=== PATIENT | male | born 1960 | race Caucasian/White ===

== ENCOUNTER 2022-06-16 15:03 | Outpatient (CLI) | payer BC, SELFPAY ==
--- NOTE | 2022-06-16 15:10 | MR_ITS ---
[address] [address] Phone:?[phone] Fax:?[phone] Referring Physician Information: Chu Colon M.D. [id number] [facility] [address] Phone:?[phone] Fax:?[phone] Patient:Espinoza Jimenez D.O.B:?1960 Sex:?Male Phone:?[phone] [facility] MRN:?[id number] Exam Date:?06/16/2022 ? EXAM: MRI of the LEFT ARM/HUMERUS WITHOUT CONTRAST CLINICAL HISTORY: Left humerus pain for multiple months attributed to traumatic injury hitting a tree. COMPARISONS: MRI of the left shoulder 10/24/2021. TECHNICAL: MR sequences of the left arm/humerus: Axials: T1, T2 FS, T2 Coronals: PD, T2, STIR Sagittals: PD, T2 CONTRAST: None SEDATION: None FINDINGS: No fracture or suspicious bone marrow signal abnormality is seen. There is mild edema-like signal within the distal portion of the biceps muscle/myotendinous junction. There is an approximately 5.6 x 2.0 x 3.1 cm intramuscular lipoma within the inferior aspect of the left deltoid muscle best seen on axial series 1 and 5 images 1 through 10. The left shoulder was not evaluated by this study. See MRI of the left shoulder and its report dated 10/24/2021. IMPRESSION: 1. 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 2. Mild edema-like signal within the distal portion of the left biceps muscle/myotendinous junction may reflect strain injury although it must be noted that evaluation is suboptimal as the images do not extend far enough distally to evaluate the distal biceps tendon including the radial tuberosity insertion. If there is concern for distal biceps tendon pathology, dedicated MRI of the left elbow could be obtained for further evaluation if clinically appropriate. 3. The left shoulder was not evaluated by this study. See MRI of the left shoulder and its report dated 10/24/2021. RCB Electronically signed on 06/17/2022 9:29:00 AM by Freddy Go M.D.
--- OUTSIDE RECORDS SUMMARY | 2022-06-16 15:11 | XMS_ITS | Encounter Summary ---
:1960 Author Organization [facility] Address [address] [place] [address] Care Team Providers Name Role Phone Unavailable Primary Care Provider Unavailable Reason for Visit Reason Onset Date Comments Testing For Upper Respiratory Virus Symptoms 09/15/2020 Encounter Details Date Type Department Care Team Description 09/15/2020 External Outreach Department of [facility] Eric Castro [facility] Medicine, Chay Maria D.O. Respiratory (Primary Building, in [address] [place], [place] [address] [address] [place], [place] [phone] (Work) [phone] Social History Tobacco Use Types Packs/Day Years Used Date Smoking Tobacco: Never Assessed Sex Assigned at Date Recorded Not on file documented as of this encounter Progress Notes Nani De Paz R.N. - 09/15/2020 12:09 PM CST Encounter created for symptomatic infectious disease screening with possible COVID, Influenza, and RSV testing. NG MACHINERY ASSEMBLER documented in this encounter Plan of Treatment Not on filedocumented as of this encounter Procedures Procedure Name Priority Date/Time Associated Diagnosis Comme nts SARS CORONAVIRUS-2 Routine 09/15/2020 12:48 PM Infection Upper Results for this RNA, V MINING MACHINERY ASSEMBLER Respiratory procedure are i n the results section. documented in this encounter Results SARS Coronavirus-2 RNA, V Symptomatic (09/15/2020 12:48 PM MINING MACHINERY ASSEMBLER) [facility] Method Time Signature SARS-CoV-2 Swab, 09/16/2020 MKTO Specimen Nasopharynx 12:49 PM Source MINING MACHINERY ASSEMBLER SARS CoV-2 Undetected Undetected 09/16/2020 [place] RNA, TMA 12:49 PM MINING MACHINERY ASSEMBLER Comment: SARS-CoV-2 RNA absent. This result does not rule out COVID-19 in the patient, as the sensitivity of the test depends o n the timing of the specimen collection and the quality of the specim en. Result should be correlated with patient's history and clinical presentat ion. ----ADDITIONAL INFORMATION---- This molecular amplification test was pe rformed using the Aptima SARS-CoV-2 assay ([employer] on the [employer] tem under emergency use authorization (EUA) by the U.S. Food and Drug Administ ration. Fact sheets for this EUA assay can be fo und at the following links: For Healthcare Providers: https://www.[employer] a.gov/media/071776/download For Patients: https://www.fda.gov/media/ 035761/download Specimen Anatomical Collection Method Collection Time Receive d Time (Source) Location / / Volume Laterality Varies 09/15/2020 12:48 09/16/2020 1:32 (Nasopharynx) PM MINING MACHINERY ASSEMBLER AM MINING MACHINERY ASSEMBLER Eric Castro D.O. LAB MICROBIOLOGY - GENERAL O RDERABLES Performing Organization Address City/State/ZIP Code Phon e Number [facility]- [address] [place] [address] [place] [address] [address] documented in this encounter Visit Diagnoses Diagnosis Infection Upper Respiratory - Primary documented in this encounter Additional Health Concerns Infection Onset Date Last Indicated Resolved Time COVID19 Pending 09/15/2020 09/15/2020 09/16/2020 12:50 PM MINING MACHINERY ASSEMBLER documented as of this encounter
--- OUTSIDE RECORDS SUMMARY | 2022-06-16 15:11 | XMS_ITS | Encounter Summary ---
:1960 Author Organization [facility] Address [address] [place] [address] Care Team Providers Name Role Phone Unavailable Primary Care Provider Unavailable Reason for Visit Reason Comments Patient Education Encounter Details Date Type Department Care Team Description 09/24/2020 Clinical Communication Department of Laci Restrepo Education [facility], [address] [place] [address] [place] [address] [place], [place] [phone] (Work) [phone] Social History Tobacco Use Types Packs/Day Years Used Date Smoking Tobacco: Never Assessed Sex Assigned at Date Recorded Not on file documented as of this encounter Plan of Treatment Not on filedocumented as of this encounter Visit Diagnoses Not on filedocumented in this encounter Additional Health Concerns Infection Onset Date Last Indicated Resolved Time [id number]: Patient has met criteria for release from isolation. Please see nursing note for further details. 09/22/2020 09/22/20202020 2:35 PM SUPERINTENDENT TERMINAL Tata Moore, R.N. documented as of this encounter
--- OUTSIDE RECORDS SUMMARY | 2022-06-16 15:11 | XMS_ITS | Encounter Summary ---
:1960 Author Organization [facility] Address [address] [place] [address] Care Team Providers Name Role Phone Unavailable Primary Care Provider Unavailable Encounter Details Date Type Department Care Team Description 09/15/2020 Clinical Communication Department of Orthopedic [facility] ere, Pcp Surgery in [place], [place] [address] [place] [address] Social History Tobacco Use Types Packs/Day Years Used Date Smoking Tobacco: Never Assessed Sex Assigned at Date Recorded Not on file documented as of this encounter Miscellaneous Notes Telephone Encounter - Sonia Diaz - 09/15/2020 11:42 AM CST What is the purpose of the call?: Requesting Testing Only Request Testing In the past 14 days are any of the following symptoms new to you and not related to an existing health condition?: New cough, New sore throat, New chills, New myalgias (muscle aches), New headache Because of symptoms, transfer patient to: : [facility] COVID Nurse Line (End Screening) Symptom Onset Date of symptom onset: 09/13/20 Testing Recommendation Endpoint Is testing recommended? : Transferred to nursing call line Plan: Endpoint recommendation: Transferred to Nursing/COVID Line/Care Team *Reminder if sending patient for testing in [facility] or [facility], route encounter to the correct testing pool. ENGER RELATIONS REPRESENTATIVE documented in this encounter Plan of Treatment Not on filedocumented as of this encounter Visit Diagnoses Not on filedocumented in this encounter
--- OUTSIDE RECORDS SUMMARY | 2022-06-16 15:11 | XMS_ITS | Encounter Summary ---
:1960 Author Organization [facility] Address [address] [place] [address] Care Team Providers Name Role Phone Unavailable Primary Care Provider Unavailable Reason for Visit Reason Comments COVID Nurse Line Encounter Details Date Type Department Care Team Description 09/15/2020 Clinical Communication Division of Joselyn Doyle COVI D Nurse Adenike [facility] Internal R.N. Medicine, [place], [place] [address] [place] [address] Social History Tobacco Use Types Packs/Day Years Used Date Smoking Tobacco: Never Assessed Sex Assigned at Date Recorded Not on file documented as of this encounter Miscellaneous Notes Telephone Encounter - Joselyn Doyle R.N. - 09/15/2020 11:49 AM CST COVID-19 Nurse Line Screening ASSESSMENT Combo COVID + Upper Respiratory Infection (URI) Screening Select the most appropriate pathway: : Adult Have you had close contact* with a person who has a LABORATORY CONFIRMED case of COVID-19 in the past 14 days?: Yes- Provide quarantine instructions. (Continue Screening) In the last 48 hours, have you had a fever* OR symptoms that are unrelated to a preexisting illness?: New cough, New sore throat, New chills, New headache Do you have any of the following urgent symptoms?: No urgent symptoms noted (Continue Screening) Do you have any of the following respiratory syntonical virus (RSV) complications? : No complications noted (Continue Screening) Are all the following symptoms present: temperature of 100.0 degrees Fahrenheit or greater, muscle aches or headache AND a cough?: No all symptoms are not present (End Screening) Symptom Onset Date of symptom onset: 09/12/20 Testing Recommendation Endpoint Is testing recommended? : Recommended to test PLAN Endpoint recommendation: Screening positive, testing indicated, advised to be swabbed for COVID-19 and Influenza, sent to [facility] located at [address] [place] [address]. The entrance is on the north side of the building. You must call [phone] for an appointment time.Testing hours are Daily 9 am to 5 pm.When you arrive at the testing site: Remain in your vehicle and check-in by phone using the same appointment line number. and Please avoid using public transportation per CDC recommendation. If you do not have personal transportation please self-quarantine until a personal transportation option is available. Care Points: -Wash hands frequently with soap and water for at least 20 seconds -If soap and water are not available, use a hand pharmacy coordinator -Avoid touching your eyes, nose and mouth. -Clean and disinfect high-touch surfaces routinely. -Wear a mask over your nose and mouth. A cloth face cover is not a substitute for social distancing -Continue to keep about 6 feet between yourself and others. -Avoid public areas and public transportation. -Find new ways to connect with family and friends, get support and share feelings. -Seek emergent care if any of the following occur Trouble breathing Bluish lips or face Persistent pain or pressure in the chest New confusion or inability to rouse. -Notify your regular care provider of any new or worsening symptoms. Symptomatic Carepoints: Separate yourself from others and stay in a specific sick room if able. Avoid sharing personal or household items. Rest. Hydrate. Take Acetaminophen/Ibuprofen as needed to control fever and muscles aches. Use over the counter medications as needed for other symptoms. Education: Patient/caregiver able to teach back Patient agreeable to plan of care: Yes The following references were used: [facility] novel coronavirus (COVID- 19) resources CDC web site https://www.cdc.gov/coronavirus/2019-ncov/summary.html Nursing judgement BLOCKER documented in this encounter Plan of Treatment Not on filedocumented as of this encounter Visit Diagnoses Not on filedocumented in this encounter
--- OUTSIDE RECORDS SUMMARY | 2022-06-16 15:11 | XMS_ITS | Encounter Summary ---
:1960 Author Organization [facility] Address [address] [place] [address] Care Team Providers Name Role Phone Unavailable Primary Care Provider Unavailable Encounter Details Date Type Department Care Team Description 09/25/2020 Clinical Communication Division of Lynda Hilario Internal Medicine in Tata Mendez, R.N. [address] [place] [phone] [phone] Social History Tobacco Use Types Packs/Day Years Used Date Smoking Tobacco: Never Assessed Sex Assigned at Date Recorded Not on file documented as of this encounter Miscellaneous Notes Telephone Encounter - Sharon Lara M.A.N., R.N. - 09/25/2020 10:38 AM CST SUBJECTIVE CHIEF COMPLAINT / REASON FOR CALL No chief complaint on file. Information Discussed Hi, my name is Tata Mccord, R.N. from [facility] with a recommendation that you receive a monoclonal antibody infusion for the treatment of coronavirus disease 2019 (COVID-19). This medication could be either bamlanivimab or a casirivimab and imdevimab combination. This medication has bee n recommended for you after review of your medical records by a multidisciplinary physician team. While most people do feel better in seven days, some people do develop serious respiratory complications which could lead to hospitalizations or even . You may have been told that there were no treatments at the time of diagnosis, but this is a quickly developing area and this is a new [place] recommended treatment option for you. In the next few minutes I am going to give you more information about these medications to help you understand the possible risks and benefits of taking a monoclonal antibody infusion It is your choice to receive a monoclonal antibody infusion or stop at any time. ??? Receiving a monoclonal antibody infusion may benefit certain people with COVID-19. ??? This may decrease your risk for hospitalization by 10% to 3% ??? This may decrease the duration of your symptoms by 2 days ( from 8 days to 6 days) ??? You may be feeling well now or not that bad, however, you have been identified as someone who isat risk of developing worse symptoms, and this infusion is designed to prevent that and help you to continue feeling well. What is a monoclonal antibody infusion? These are investigational medicines used for the treatment of COVID-19, it can be used in peoplewho are: o Not in the hospital o Who do not have a new or increased oxygen requirement due to COVID-19 o Who have not tested positive for COVID-19 previously o Age 12 and older o Have mild or moderate symptoms o Weigh equal or more than 88 pounds o AND who are at high risk for developing severe COVID-19 symptoms or being hospitalized. Do you have new or increased oxygen requirement due to COVID 19? No, I do need to let you know that your vital signs will be taken on the arrival for the infusion center. If you are found to be in needof oxygen due to COVID-19 then you will not be infused with MAB rather you will be referred to an urgent care or ED for evaluation of worsening disease. Have you been previously tested and diagnosed with COVID-19? No. I need to let you know that these medications are investigational because it is still being studied.The FDA has approved the use of this medication under an EUA while data is still being collected; but early studies suggest that it reduces the risk of hospitalization. The FDA's Emergency Use Authorization (EUA) has authorized people to receive monoclonal antibody infusions for the treatment of mild COVID-19 . [facility] supports this treatment for certain people. Tell your healthcare provider about all of your medical conditions, including if you: ??? Have any allergies ??? Are or plan to become ??? Are or plan to breastfeed ??? Have any serious illnesses ??? Are taking any medications (prescription, ehvo-qkf-[id number], vitamins, and herbal products) How will I receive a monoclonal antibody infusion? Monoclonal antibodies are given to you through a vein in your arm over 1-2 hours. You will be observed for 1 hour after the infusion is complete to monitor for side effects You will receive one dose of a monoclonal antibody infusion by IV infusion. What are the important possible side effects of monoclonal antibodies? The most commonly reported side effects in clinical studies have been nausea, diarrhea, dizziness, headache, itching and vomiting. Serious reactions such as allergic reactions or infusion reactions have occurred but are uncommon. Tell your health care provider right away if you have any of the following signs or symptoms of an allergic reaction: fever, chills, nausea, headache, shortness of breath, low blood pressure, wheezing, swelling of your lips face or throat, rash including hives, itching, muscle aches and dizziness. Because monoclonal antibody infusions are still being studied, not a lot of people have been given monoclonal antibody infusions yet, and it is possible that not all of the risks are known at this time. Serious and unexpected side effects may happen. Specific studies haven not been conducted to address the possible risks that a monoclonal antibody infusion could interfere with your body's own ability to fight off a future infection of SARS-CoV-2 and/or whether it could reduce your body's immune response to a vaccine for SARS-CoV-2 . Talk to your healthcare provider if you have any questions inclusing whether the risks of serious SARS-CoV-2 infection outweigh the potential risks of monoclonal antibody infusion. You are still eligible for the COVID-19 vaccine if you receive a monoclonal antibody infusion. The recommendation is that you wait for 90 days from the start of your symptoms, or date of positive test if you never had symptoms, to receive the vaccine. This is because you will have natural antibodies as well as the ones from the infusion. After 90 days the antibodies from the infusion will have cleared out of your system. I am happy to share with you that in the last 30 days [facility] has infused over 700 patients witha monoclonal antibody infusion [place]. I am sharing this because we have not seen any serious side effects in the patients who chose to receive the infusion. The side effects that we are seeing are similar to patients who chose not to receive the medication at all. Patients have reported to us mild fever, diarrhea, chills for a short while, and/or hives. What other treatment choices are there? Like monoclonal antibody infusions, the FDA may allow for the emergency use of other medicines to treat people with COVID-19. Go to https://www.ddbwm60qmxqirainfjgvowhfjf.nih.gov/ for information on the emergency use of other medicines that are not approved by FDA to treat people with COVID- 19. Your healthcare provider may talk with you about clinical trials you may be eligible for. It is your choice to be treated or not to be treated with a monoclonal antibody infusion. Should youdecide not to receive a monoclonal antibody infusion or stop it at any time, it will not change yourstandard medical care. Are you or ? No. How do I report side effects with monoclonal antibody infusion? Tell your healthcare provider right away if you have any side effect that bothers you or does not goaway. Please reach out to the nursing team coordinating your care to report any side effects, after emergency care, If needed, has been reached. Report side effects to FDA MedWatch at www.fda.gov/medwatch, call 6-641-TYU-1344. How can I learn more? Ask your healthcare provider ??? Visit https://www.ujjui14hnduaqblyysvrpwtiqz.nih.gov/ ??? Contact your local or state public health department Would you like to learn more about what an Emergency Use Authorization ( EUA)?Yes; The [facility] has made these monoclonal antibody infusions available under an emergency access mechanism called an EUA. The EUA is supported by a General Purchasing Agent of Health and Human Service (HHS) declaration that circumstances exist to justify the emergency use of drugs and biological products during the COVID-19 pandemic. What is the cost for this medication? The medication is provided to [facility] at no charge and there is not cost of the medication to you the patient. Any associated costs with the infusion will be billed to the patient's insurance company. [place] does not want cost to be a barrier to infusion so please let us know at your infusion you need more information or worried about cost being a barrier. If you are uninsured or underinsured you will still be able to receive this medication free of cost. Please know that there has been a large review by pharmacists, and this medication is not likely to interfere with any normal medication patients may be taking. This is possible as your body processes this medication differently than standard prescription medications. Given how this medication helps your body it is better to receive this medication as soon as possible if you agree to the infusion. I want to let you know that there is no known evidence that one of these medications is better or worse than another in terms of effectiveness or known risk of side effects. Please also know that the medication you will receive will be by chance based on the medication supply, infusion location, and the date of your appointment. Please know that our team is offering and will provide you this treatment for COVID-19 as part of a larger team that is coordinating your overall care. If you have continued questions after your infusion or your symptoms get worse please reach out to the team coordinating your clinical care, either a COVID-19 focused team or your primary care provider's office. If you have a patient portal please look at your messages as there may be one awaiting your review from the clinical team coordinating your care. Do you agree/consent to receive this infusion? No; Would you be comfortable telling me why? I don't want to drive that far. Thank you for your time, I will connect with the rest of the team to let them know the results of this phone call. PLAN Disposition/Recommendation: self-care is appropriate at this time, patient encouraged to call back with questions Information/Education: patient/caller able to teach back Caller agreeable to plan of care: no does not want to drive that far. The following references were used: nursing clinical judgement and patient education resources: Monoclonal Antibody INE CANDLE MOLDER documented in this encounter Plan of Treatment Not on filedocumented as of this encounter Visit Diagnoses Not on filedocumented in this encounter Additional Health Concerns Infection Onset Date Last Indicated Resolved Time [id number]: Patient has met criteria for release from isolation. Please see nursing note for further details. 09/22/2020 09/22/20202020 2:35 PM MACHINE CANDLE MOLDER Judy Moore., R.N. documented as of this encounter
--- OUTSIDE RECORDS SUMMARY | 2022-06-16 15:11 | XMS_ITS | Clinical Summary ---
:1960 Author Organization [facility] Address [address] [place] [address] Care Team Providers Name Role Phone Unavailable Primary Care Provider Unavailable Source Comments Patient records contain information from all sites at [facility]. For routine questions regarding patient records, call [phone] during business hours, M-F 8:00 AM - 5:00 PM Central Time. Record requests for emergency care only can be directed to [phone] at any time.[facility] Immunizations Name Administration Dates Next Due H1N1 All Forms 09/17/2009 Influenza, Unspecified 07/15/2009, 08/24/2007, 09/01/2006, 1 09/28/2003 Social History Tobacco Use Types Packs/Day Years Used Date Smoking Tobacco: Never Assessed Sex Assigned at Date Recorded Not on file Last Filed Vital Signs Vital Sign Reading Time Taken Comments Blood Pressure - - Pulse - - Temperature - - Respiratory Rate - - Oxygen Saturation - - Inhaled Oxygen Concentration - - Weight 169 kg (373 lb 7.4 oz) 09/15/2020 2:49 PM OPERATIONS INTERN Height 185.4 cm (6' 1) 09/15/2020 2:49 PM OPERATIONS INTERN Body Mass Index 49.27 09/15/2020 2:49 PM OPERATIONS INTERN Plan of Treatment Health Maintenance Due Date Last Done Comments CT Colonography 1960 Cologuard 1960 Colonoscopy 1960 Colorectal Cancer Screening 1960 FIT 1960 HIV Screening 1960 Hepatitis C Screening 1960 Zoster Vaccines (1 of 2) 2009 Creatinine Level 04/02/2021 04/02/2020, 08/10/2019, 06/21/2019, Additional history exists Potassium Level 04/02/2021 04/02/2020, 08/10/2019, 06/21/2019, Additional history exists Sodium Level 04/02/2021 04/02/2020, 08/10/2019, 06/21/2019, Additional history exists COVID-19 Vaccine (3 - 04/08/2021 02/11/2021, 01/17/2021 Booster for Pfizer series) Depression Screening 09/27/2021 (Annual PHQ-2) Influenza Vaccine (#1) 2022 07/16/2020, 07/16/2020, 06/21/2019, Additional history exists DTaP,Tdap,and Td Vaccines 08/31/2022 08/31/2012 (2 - Td or Tdap) Fasting Glucose for 04/02/2023 04/02/2020, 08/10/2019, Diabetes Screening 06/21/2019, Additional history exists Lipid (Cholesterol) 04/02/2025 04/02/2020, 06/21/2019, Screening 08/12/2018 Pneumococcal vaccine (0-64 Aged Out 07/24/2015 No lo nger eligible years) based on patient 's age to complete this topic Insurance Payer Benefit Plan / Subscriber ID Effective Phone Address T ype Group Dates [facility] [id number] 2019-Pres [phone] [address] [facility] [address] [place] [address] (Home) [place] [address]
--- OUTSIDE RECORDS SUMMARY | 2022-06-16 15:11 | XMS_ITS | Encounter Summary ---
:1960 Author Organization [facility] Address [address] [place] [address] Care Team Providers Name Role Phone Unavailable Primary Care Provider Unavailable Encounter Details Date Type Department Care Team Description 09/23/2020 Clinical Communication Division of [facility] Pulido, Internal Medicine in [place], [place] [phone] [address] [facility] (Work) [place] [address] Social History Tobacco Use Types Packs/Day Years Used Date Smoking Tobacco: Never Assessed Sex Assigned at Date Recorded Not on file documented as of this encounter Plan of Treatment Not on filedocumented as of this encounter Visit Diagnoses Not on filedocumented in this encounter Additional Health Concerns Infection Onset Date Last Indicated Resolved Time COVID19 Pending 09/22/2020 09/22/2020 09/23/2020 1:05 PM TURF GROWER [id number]: Patient has met criteria for release from isolation. Please see nursing note for further details. 09/22/2020 09/22/20202020 2:35 PM TURF GROWER Judy Moore., R.N. documented as of this encounter
--- OUTSIDE RECORDS SUMMARY | 2022-06-16 15:11 | XMS_ITS | Clinical Summary ---
:1960 Author Organization [facility] [place] [address] Care Team Providers Name Role Phone Sonia Gordon DO Primary Care Provider Allergies Active Allergy Reactions Severity Noted Date Comments Cats (Fur, Dander, Saliva) 10/20/2006 Homeopathic Products 03/07/2007 Medications Medication Sig Dispensed Refills Start End Status Date Date CPAPIndications: Other mask, 1 Device 0 06/21/20 Active sleep apnea headgear, 19 filters and tubing. For home use. Pressure: 11 cm water Length of Need: 99 mo furosemide (LASIX) 20 Take 1 tablet 30 tablet 1 05/27/20 Active mg tabletIndications: by mouth 20 Bilateral leg edema every morning. tiZANidine (ZANAFLEX) 4 Take 1 Tablet 60 tablet. 2 02/11/20 Active mg tabletIndications: (4 mg) by 21 Lumbosacral spondylosis mouth every 6 without myelopathy, hours if Pain medication needed for agreement Muscle Spasm. escitalopram oxalate Take 1 Tablet 90 tablet. 3 05/21/20 Active (LEXAPRO) 20 mg (20 mg) by 21 tabletIndications: mouth once Anxiety state, Stress daily. reaction hydroCHLOROthiazide Take 1 Tablet 90 Tablet 3 05/21/20 Active (HCTZ) 25 mg (25 mg) by 21 tabletIndications: mouth once Hypertension daily. montelukast (SINGULAIR) Take 1 Tablet 90 tablet. 3 05/21/20 Active 10 mg (10 mg) by 21 tabletIndications: Mild mouth at intermittent asthma bedtime. without complication albuterol HFA (ProAir Inhale 1-2 1 Each 2 05/21/20 Active HFA) 90 mcg/actuation Puffs by 21 inhalerIndications: mouth every 4 Mild intermittent hours if asthma without needed. complication aspirin chewable 81 mg Chew by 0 Active chewable tablet mouth. atenoloL (TENORMIN) 25 Take 1 Tablet 90 Tablet 3 11/29/19 Active mg tabletIndications: (25 mg) by 22 Hypertension mouth once daily. metFORMIN (GLUCOPHAGE Take 2 180 Tablet 1 11/29/19 Active XR) 500 mg Tablets 22 Extended-Release (1,000 mg) by tabletIndications: Type mouth once 2 diabetes mellitus daily. 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 current use of insulin (HC) FreeStyle Merry 2 Change sensor 6 Each 3 11/29/19 Active SensorIndications: Type every 14 days 22 2 diabetes mellitus without complication, without long-term current use of insulin (HC) celecoxib (CELEBREX) Take 1 60 Capsule 1 12/26/19 Active 200 mg Capsule (200 22 capsuleIndications: mg) by mouth Lumbosacral spondylosis 2 times daily without myelopathy with meals. oxyCODONE 10 mg Take 0.5-1 60 Tablet 0 06/10/20 Act lucero tabletIndications: Tablets (5-10 22 Chronic bilateral low mg) by mouth back pain without 3 times daily sciatica if needed for Pain. As needed Severe pain HYDROcodone-acetaminoph 1 tab oral 5 120 Tablet 0 06/15/20 Active en, 7.5-325 mg, (NORCO times a day 22 7.5-325) 7.5-325 mg per as needed for tabletIndications: pain. Lumbosacral spondylosis without myelopathy tobramycin-dexamethason 0 09/30/19 Discontinued e (TOBRADEX) 0.3%-0.1% 18 (*Med opthalmic suspension complete/Regime n complete/L evel of care ch lily) methylPREDNISolone Take by mouth 21 Tablet 0 02/12/20 Discontinued (Medrol, Broderick,) 4 mg as instructed (*Med tabletIndications: per c omplete/Regime Cough packaging. n complete/L evel of care lily) oxyCODONE 10 mg Take 0.5-1 60 Tablet 0 05/07/20 Dis continued tabletIndications: Tablets (5-10 22 022 (Reorder Chronic bilateral low mg) by mouth (E-cancel not back pain without 3 times daily sent)) sciatica if needed for Pain. As needed Severe pain HYDROcodone-acetaminoph 1 tab oral 5 120 Tablet 0 05/08/20 Discontinued en, 7.5-325 mg, (NORCO times a day 22 022 (Reorder 7.5-325) 7.5-325 mg per as needed for (E-cancel not tabletIndications: pain. s ent)) Lumbosacral spondylosis without myelopathy oxyCODONE 10 mg Take 0.5-1 60 Tablet 0 05/20/20 Dis continued tabletIndications: Tablets (5-10 22 022 (Reorder Chronic bilateral low mg) by mouth (E-cancel not back pain without 3 times daily sent)) sciatica if needed for Pain. As needed Severe pain HYDROcodone-acetaminoph 1 tab oral 5 120 Tablet 0 05/28/20 Discontinued en, 7.5-325 mg, (NORCO times a day 22 022 (Reorder 7.5-325) 7.5-325 mg per as needed for (E-cancel not tabletIndications: pain. 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 Alex Browning, [facility] Bebo Pillai MD Ok to fill at same amount/dose/frequency in my absence. 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 05/21/2021 Unspecified constipation 01/21/2012 09/28/2014 Medication monitoring encounter 01/21/2012 09/28/19 15 Back pain 12/08/2010 12/08/2010 Localized swelling, mass and lump, lower limb 10/11/2008 09/28/2014 Overview: Left calf Back pain 06/28/2008 03/21/2013 Tobacco use disorder 03/07/2007 02/12/2013 Other, mixed, or unspecified nondependent drug abuse, 200602/01/2012 unspecified Unspecified asthma, with exacerbation 10/20/2006 Bronchitis, not specified as acute or chronic 10/20/2006 09/28/2014 Personal history of diseases of respiratory system 05/27/2020 Encounters Date Type Specialty Care Team Description 06/16/2022 Telephone Sonia Gordon DO insura nce referrals (two insurance refer rals) 06/15/2022 Office Visit Alex Browning, Musculo skeletal Problem (Follow up low back pain) 06/15/2022 Travel 06/09/2022 Refill Sonia Gordon DO Refill Request (Oxycodone) 05/26/2022 Refill Alex Browning, Refill Request ([place] ) 05/20/2022 Telephone Alex Browning, Need Me ds (oxyCODONE 10 mg MD tablet) 05/18/2022 Refill Alex Browning, Refill Request (oxyCODONE 10 MD mg tablet) 05/07/2022 Telephone Alex Browning, Medicat ion Management (HYDROcodone-ac etaminophen, 7.5-325 mg) 05/07/2022 Refill Alex Browning Refill Request (Oxycodone) 04/28/2022 Refill Alex Browning, Refill Request (OXYCODONE 10 MD MG TABLET ) 04/16/2022 Telephone Alex Browning Medicat ion Management (Hydrocodone-ac etaminophen 7.5-325 mg tabl et ) 04/07/2022 Telephone Alex Browning, Need Me ds MD 03/24/2022 Refill Alex Browning, Refill Request (HYDROcodone-ac etaminophen, 7.5-325 mg, (NO RCO 7.5-325)) 03/16/2022 Telephone Alex Browning, Need Me ds (oxyCODONE 10 mg MD tablet) from Last 3 Months Immunizations Name Administration Dates Next Due AMB INFLUENZA, IIV4 (AGE=>6MOS) MDV 07/05/2017 (Flu Clinic Only) Influenza A (H1N1), Inactivated 09/17/2009 Influenza Virus, Unspecified 07/16/2020 Influenza, IIV3 (Age >=3 years) 06/28/2014, 07/25/2013, 06/27, 07/15/2009, 08/24/2007, 09/01/2006, 07/29/2004 Influenza, IIV4 06/21/2019, 07/11/2018, 07/08/2016, 07/24/2015 Influenza, IIV4 (=>6mos) MDV 07/05/2017 Pneumococcal conj 13-Valent (Prevnar 07/24/2015 13) Tdap 08/31/2012 Family History Medical History Relation Name Comments Genetic Other Postitive for he art disease, AODM and hypertension. Relation Name Status Comments Father Alive Maternal Grandfather Maternal Grandmother Mother Alive Other Paternal Grandfather Paternal Grandmother Sister Alive x2 Social History Tobacco Use Types Packs/Day Years Used Date Never Smoker Smokeless Tobacco: Current User Chew Tobacco Cessation: Ready to Quit: Yes; C ounseling Given: Yes Alcohol Use Standard Drinks/Week Comments No 0 (1 standard drink = 0.6 oz pure alcoho l) Alcoholic Drinks/day: seldom Sex Assigned at Date Recorded Not on file COVID-19 Exposure Response Date Recorded In the last 10 days, have you been in contact with No / Unsu re 06/15/2022 8:10 AM CDT someone who was confirmed or suspected to have Coronavirus/COVID-19? Obstetrics History Last Filed Vital Signs Vital Sign Reading Time Taken Comments Blood Pressure 114/79 06/15/2022 8:21 AM CDT Pulse 76 06/15/2022 8:21 AM CDT Temperature 36.8 ??C (98.2 ??F) 06/15/2022 8:21 AM CDT Respiratory Rate 16 11/28/2021 9:45 AM DENIAL MANAGEMENT REPRESENTATIVE Oxygen Saturation 99% 06/15/2022 8:21 AM CDT Inhaled Oxygen Concentration - - Weight 160.6 kg (354 lb) 06/15/2022 8:21 AM CDT Height 185.4 cm (6' 1) 05/21/2021 7:34 AM CDT Body Mass Index 46.7 05/21/2021 7:34 AM CDT Plan of Treatment Upcoming Encounters Date Type Specialty Care Team Description 10/12/2022 Office Visit Alex Browning MD [address] [place], [place] [address] (Wo rk) Health Maintenance Due Date Last Done Comments Zoster (shingles) series for age 0906/12/2009 50+ (1 of 2) Pneumococcal series for age 19-64 07/24/2016 07/24/2015 (2 - PPSV23 or PCV20) Fecal testing non-DNA 08/13/2017 08/13/2016, 02/13/2012 (FIT,FOBT,iFOBT) for age 45-75 COVID-19 vaccine series (3 - 07/14/2021 02/11/2021, 021 Booster for Pfizer series) BMI (ht and wt on same day) for 05/21/2022 05/21/2021, 10/28, age 18+ 08/10/2019, Additional history exists Influenza for age 50-64 05/28/2022 07/16/2020, 06/21/2019, 07/11/2018, Additional history exists Tetanus booster 08/31/2022 08/31/2012 Depression screening for age 12+ 09/02/2022 09/02/2021, 03/2021, 09/01/2021, Additional history exists Colonoscopy through age 75 06/11/2025 06/11/2020, 4, 02/06/2009, Additional history exists Lipids for age 45-75 11/28/2026 11/28/2021, 05/20/2021, 04/02/2020, Additional history exists Tdap Completed 08/31/2012 Hepatitis C screening for age Completed 01/06/2018, 2013 18-79 Medical Devices Implanted Type Area Senior Editor Device Shelf Model / Identifier Expiration Serial / Date Lot Mesh Ventralex Hernia Patch (L) #[id number] - [id number] N/A: Abdomen D-BARD 11/24/2015 [id number] / Implanted: Qty: 1 on 11/06/2014 by Milad Flores MD at [facility] / [id number] Mesh Surgical 3in X 6in #[id number] - [id number] Right: D-BA RD 08/24/2020 [id number] / Implanted: Qty: 1 on 02/25/2016 by Milad Flores MD at [facility] Inguinal / [id number] Results Not on filefrom Last 3 Months Insurance Payer Benefit Plan / Subscriber ID Effective Dates Phone Addre ss Type Group [employer] [place] [id number] 2020-Present [address] [place] [address] Bebo Jimenez Personal/Family Self [phone] (Home) [facility] [place] [address] Advance Directives Documents on File Type Date Recorded Patient Certified Control Systems Technician Explanati on Power of Credit Administration Officer 11/20/2016 9:04 PM 02/05/16 Latest Code Status on File Code Status Date Activated Date Inactivated Comments Full Code 06/11/2020 9:56 AM 06/11/2020 3:13 PM Code Status Discussion: Discussed Full Code 02/25/2016 11:22 AM 02/25/2016 5:20 PM Full Code 11/13/2014 11:45 AM 11/13/2014 4:04 PM Full Code 11/06/2014 11:17 AM 11/06/2014 4:50 PM Full Code 11/05/2014 6:14 PM 11/06/2014 11:17 AM Care Teams Manager Of Learning Relationship Specialty Start Date End Date Sonia Gordon DO PCP - General Internal Medicine 05/18/17 [address] [facility] [place] [address]
--- OUTSIDE RECORDS SUMMARY | 2022-06-16 15:11 | XMS_ITS | Clinical Summary ---
:1960 Author Organization [facility] Address [address] [address] Phone Care Team Providers Name Role Phone Bebo Pillai MD Primary Care Provider [phone] Allergies No known active allergies Medications Medication Sig Dispensed Refills Start Date End Date Status HYDROcodone-acetaminophe Take 1 Tab by 0 Active n (NORCO) 7.5-325 MG mouth every six oral tablet hours as needed for Pain. Limit acetaminophen to 4000 mg per day from all sources. oxyCODONE 10 MG Take 10 mg by 0 Active immediate release tablet mouth every four hours as needed for Pain. metFORMIN-XR Take 1,000 mg by 0 12/19/2020 Active (Glucophage-XR) 500 MG mouth one time a 24 hour tablet day. atenolol (Tenormin) 25 Take 25 mg by 0 01/10/2021 Active MG tablet mouth one time a day. meloxicam (Mobic) 15 MG Take 15 mg by 0 12/10/2020 Active tablet mouth one time a day. hydroCHLOROthiazide Take 25 mg by 0 12/19/2020 Active (Hydrodiuril) 25 MG mouth one time a tablet day. furosemide (Lasix) 20 MG Take 20 mg by 0 05/27/2020 Active tablet mouth every morning. ASPIRIN 81 OR Take by mouth. 0 A ctive Active Problems No known active problems Social History Tobacco Use Types Packs/Day Years Used Date Never Smoker Smokeless Tobacco: Current User Chew Alcohol Use Standard Drinks/Week Comments Not Asked 0 (1 standard drink = 0.6 oz pure alcoho l) Sex Assigned at Date Recorded Not on file Job Start Date Occupation Industry Not on file Not on file Not on file Obstetrics History Last Filed Vital Signs Vital Sign Reading Time Taken Comments Blood Pressure 120/79 02/14/2021 4:09 PM CDT Pulse 91 02/14/2021 4:09 PM CDT Temperature 37.1 ??C (98.8 ??F) 02/14/2021 4:09 PM CDT Respiratory Rate 22 02/14/2021 4:09 PM CDT Oxygen Saturation 97% 02/14/2021 4:09 PM CDT Inhaled Oxygen Concentration - - Weight 168.6 kg (371 lb 11.1 oz) 02/14/2021 4:09 PM CDT Height 185.4 cm (6' 1) 05/13/2017 11:06 PM CDT Body Mass Index 49.04 05/13/2017 11:06 PM CDT Plan of Treatment Health Maintenance Due Date Last Done Comments COVID-19 Vaccine (#1) 1960 PERTUSSIS (Standing Order) 1978 TETANUS (Standing Order) 1978 Shingrix (Zoster recombinant) 2009 vaccine (Standing Order) (1 of 2) Influenza Vaccine Seasonal 05/28/2022 (Standing Order) (#1) Pneumococcal/PCV Vaccine: Aged Out No ayush nilsa eligible based on Pediatrics (0-5 yrs) and At-Risk patient's age to complete this Patients (6-64 yrs) (Standing to pic Order) Insurance Payer Benefit Plan / Subscriber ID Effective Phone Address T ype Group Dates [employer] [place] [employer] [id number] 2019-Pres [phone] [employer] [facility] REF REQ 1 ent [phone] [place] [address] Care Teams Warehouse Sorter Relationship Specialty Start Date End Date Bebo Pillai MD PCP - General Family Medicine 02/17/13 [facility] [address] [place] [address]
--- OUTSIDE RECORDS SUMMARY | 2022-06-16 15:11 | XMS_ITS | Encounter Summary ---
:1960 Author Organization [facility] Address [address] [address] Phone Care Team Providers Name Role Phone Bebo Pillai MD Primary Care Provider [phone] Encounter Details Date Type Department Care Team Description 02/14/2021 Travel Social History Tobacco Use Types Packs/Day Years Used Date Never Smoker Smokeless Tobacco: Current User Chew Alcohol Use Standard Drinks/Week Comments Not Asked 0 (1 standard drink = 0.6 oz pure alcoho l) Sex Assigned at Date Recorded Not on file Job Start Date Occupation Industry Not on file Not on file Not on file COVID-19 Exposure Response Date Recorded In the last month, have you been in contact with No / Unsure 02/14/2021 3:54 PM CDT someone who was confirmed or suspected to have Coronavirus / COVID-19? documented as of this encounter Functional Status Functional Status Response Date of Assessment Patient's Vision Adequate to Safely Complete Daily Yes 05/13/2017 Activities Patient's Memory Adequate to Safely Complete Daily Yes 05/13/2017 Activities Cognitive Status Response Date of Assessment Patient's Judgment Adequate to Safely Complete Daily Yes 05/13/2017 Activities documented as of this encounter Plan of Treatment Not on filedocumented as of this encounter Visit Diagnoses Not on filedocumented in this encounter Care Teams Terminal Operator Relationship Specialty Start Date End Date Bebo Pillai MD PCP - General Family Medicine 02/17/[address] [place] [address] [place] ROS[place] [id number] documented as of this encounter
--- OUTSIDE RECORDS SUMMARY | 2022-06-16 15:11 | XMS_ITS | Encounter Summary ---
:1960 Author Organization [facility] Address [address] [place] [address] Care Team Providers Name Role Phone Unavailable Primary Care Provider Unavailable Encounter Details Date Type Department Care Team Description 09/22/2020 Admin Visit Department of Family Medicine, [address] [address] [facility] [phone] Social History Tobacco Use Types Packs/Day Years Used Date Smoking Tobacco: Never Assessed Sex Assigned at Date Recorded Not on file documented as of this encounter Plan of Treatment Not on filedocumented as of this encounter Visit Diagnoses Not on filedocumented in this encounter Additional Health Concerns Infection Onset Date Last Indicated Resolved Time COVID19 Pending 09/22/2020 09/22/2020 09/23/2020 1:05 PM FRONT MAN documented as of this encounter
--- OUTSIDE RECORDS SUMMARY | 2022-06-16 15:11 | XMS_ITS | Encounter Summary ---
:1960 Author Organization [facility] Address [address] [place] [address] Care Team Providers Name Role Phone Unavailable Primary Care Provider Unavailable Encounter Details Date Type Department Care Team Description 09/22/2020 Clinical Communication [facility] Medicine, [address] [address] Social History Tobacco Use Types Packs/Day Years Used Date Smoking Tobacco: Never Assessed Sex Assigned at Date Recorded Not on file documented as of this encounter Plan of Treatment Not on filedocumented as of this encounter Visit Diagnoses Not on filedocumented in this encounter
--- OUTSIDE RECORDS SUMMARY | 2022-06-16 15:11 | XMS_ITS | Encounter Summary ---
:1960 Author Organization [employer] Address [address] [address] Phone Care Team Providers Name Role Phone Bebo Pillai MD Primary Care Provider [phone] Reason for Visit Reason Comments Other blood in stool started this morning; just finished prednisone, just finished the 4 days of 60mg , suppose to started 4 days of 40mg today -- pt was told to come in to have labs done Office Visit (Routine) - Denied Specialty Diagnoses / Procedures Referred By Contact Refer red To Contact Urgent Care Diagnoses Blood per rectum Other acute gastritis without hemorrhage Blood in urine -[facility] Procedures [facility] [address] [employer] [address] [employer] [place] [address] [place] [address] Referral ID Status Reason Start Date Expiration Date Visits Requ ested Visits Authorized [id number] Denied 02/14/2021 1 0 Encounter Details Date Type Department Care Team Description 02/14/2021 Office Visit [facility] Kade Reeder ood per rectum (Primary Dx); URGENT CARE MD Crow Other acute gastritis without hemorrhage [id number] [address] [facility] [place] [address] [place] [address] Social History Tobacco Use Types Packs/Day Years [...] / COVID-19? documented as of this encounter Last Filed Vital Signs Vital Sign Reading Time Taken Comments Blood Pressure 120/79 02/14/2021 4:09 PM CDT Pulse 91 02/14/2021 4:09 PM CDT Temperature 37.1 ??C (98.8 ??F) 02/14/2021 4:09 PM CDT Respiratory Rate 22 02/14/2021 4:09 PM CDT Oxygen Saturation 97% 02/14/2021 4:09 PM CDT Inhaled Oxygen Concentration - - Weight 168.6 kg (371 lb 11.1 oz) 02/14/2021 4:09 PM CDT Height - - Body Mass Index 49.04 05/13/2017 11:06 PM CDT documented in this encounter Functional Status Functional Status Response Date of Assessment Patient's Vision Adequate to Safely Complete Daily Yes 05/13/2017 Activities Patient's Memory Adequate to Safely Complete Daily Yes 05/13/2017 Activities Cognitive Status Response Date of Assessment Patient's Judgment Adequate to Safely Complete Daily Yes 05/13/2017 Activities documented as of this encounter Progress Notes Kade Reeder MD - 02/14/2021 4:54 PM CDT Patient Name: BEBO JIMENEZ Date of Service: 02/14/2021 : 1960 Age: 60 Sex: M Patient Loc/Room: B[facility]NER/ Provider: Kade Reeder MD, Urgent Care URGENT CARE SITE: [facility] URGENT CARE SUBJECTIVE: 60-year-old male complains of blood in the stool, which started this morning. He is taking prednisone for back arthritis and chronic back difficulties. He just finished the first 4 days of 60 mg and he is now going to 40 mg. He has noticed that that is bothering his stomach, so he is considering going to 20. He did contact his primary doctor, Dr. Alex Browning in [place], who recommended he have a blood count done to be sure no excessive bleeding. He is having some very mild abdominaldiscomfort on the left upper abdomen. Otherwise, this is very, very unremarkable he says. He has hadno change in stools, those have been normal. OBJECTIVE: On exam, alert male in no acute distress. Vitals documented and normal. Lungs are clear. Cardiac exam is regular. Exam of the abdomen is soft and nontender with normoactive bowel sounds present. No abnormality noted on anorectral exam LABORATORY: Did check a CBC which shows elevated white count of 14,900. I suspect secondary to high dose steroids. His red blood count is normal. ASSESSMENT AND PLAN: 1. Blood per rectum - told him it was unlikely the prednisone was causing this. This could be from internal hemorrhoids. Less likely could have a new onset of inflammatory bowel disease. However, he isnot having significant abdominal pain. Follow up with PCP 2. Stomach irritation from prednisone - he will titrate this to what can be handled on his stomach. Will have him call his PCP for further instructions. Kade Reeder MD Urgent Care [phone] [facility] [address], [place] [address] /KJB TID #:[id number] /carnc documented in this encounter Plan of Treatment Not on filedocumented as of this encounter Results (ABNORMAL) HEMOGRAM (02/14/2021 4:41 PM CDT) athologist Signature WBC 14.9 (H) 3.2 - 11.0 02/14/2021 [facility] 10*9/L 4:44 PM CDT - [facility] RBC 5.13 4.14 - 5.76 02/14/2021 [facility] 10*12/L 4:44 PM CDT - [facility] HGB 14.8 12.9 - 16.9 02/14/2021 [facility] g/dL 4:44 PM CDT - [facility] HCT 44.8 38.4 - 49.7 02/14/2021 [facility] % 4:44 PM [facility] MCV 87.3 81.4 - 99.0 02/14/2021 [facility] fL 4:44 PM CDT [facility] MCH 28.8 26.7 - 33.1 [facility] 4[facility]44 PM CDT [facility] MCHC 33.0 31.6 - 35.5 02/14/2021 [facility] g/dL 4:44 PM [facility] RDW 12.3 11.3 - 14.6 02/14/2021 [facility] % 4:44 PM T [facility] PLT 321 130 - 375 02/14/2021 [facility] 10*9/L 4:44 PM [facility] Specimen Anatomical Collection Method / Collection Time [place] Time (Source) Location / Volume Laterality Blood BLOOD SPECIMEN / Venipuncture / 02/14/2021 4:41 2020 4:41 Unknown Unknown PM CDT PM CDT Kade Reeder MD EC HEMATOLOGY ORDERABLES Performing Organization Address City/State/ZIP Code Phon e Number [facility] [address] [place] [id number] LABORATORY documented in this encounter Visit Diagnoses Diagnosis Blood per rectum - Primary Hemorrhage of rectum and anus Other acute gastritis without hemorrhage documented in this encounter Historical Medications This list may reflect changes made after this encounter. Medication Sig Dispensed Refills Start Date End Date ASPIRIN 81 OR Take by mouth. 0 furosemide (Lasix) 20 MG tablet Take 20 mg by 0 0 05/27/2020 mouth every morning. hydroCHLOROthiazide Take 25 mg by 0 12/19/2020 (Hydrodiuril) 25 MG tablet mouth one time a day. meloxicam (Mobic) 15 MG tablet Take 15 mg by 0 mouth one time a day. atenolol (Tenormin) 25 MG Take 25 mg by 0 021 tablet mouth one time a day. metFORMIN-XR (Glucophage-XR) Take 1,000 mg by 0 0 12/19/2020 500 MG 24 hour tablet mouth one time a day. added in this encounter Care Teams [employer] Paralegal Relationship Specialty Start Date End Date Bebo Pillai MD PCP - General Family Medicine 02/17/[address] [place] [address] documented as of this encounter
--- OUTSIDE RECORDS SUMMARY | 2022-06-16 15:11 | XMS_ITS | Encounter Summary ---
:1960 Author Organization [employer] Address [address] [address] Phone Care Team Providers Name Role Phone Bebo Pillai MD Primary Care Provider [phone] Reason for Visit Reason Comments Tick Bite Encounter Details Date Type Department Care Team Description 02/17/2013 [facility] Mayito Falcon MD Tick bite (Primary MEDICINE [address] Dx) [address] [place], [place] [phone] (Wo rk) Social History Tobacco Use Types Packs/Day Years Used Date Never Smoker Alcohol Use Standard Drinks/Week Comments Not Asked 0 (1 standard drink = 0.6 oz pure alcoho l) Sex Assigned at Date Recorded Not on file Job Start Date Occupation Industry Not on file Not on file Not on file documented as of this encounter Last Filed Vital Signs Vital Sign Reading Time Taken Comments Blood Pressure 118/74 02/17/2013 10:03 AM CDT Pulse - - Temperature 35.9 ??C (96.7 ??F) 02/17/2013 10:03 AM CDT Respiratory Rate - - Oxygen Saturation - - Inhaled Oxygen Concentration - - Weight 159.1 kg (350 lb 12.8 oz) 02/17/2013 10:03 AM CDT Height - - Body Mass Index - - documented in this encounter Ordered Prescriptions Prescription Sig Dispensed Refills Start Date End Date doxycycline (VIBRA-TABS) Take 2 Tabs by 2 Tab 0 013 02/18/2013 100 MG tablet mouth one time a day for 1 day. documented in this encounter Progress Notes Mayito Falcon MD - 02/21/2013 2:15 PM CDT [facility] Patient Name: BEBO JIMENEZ Date of Service: 02/17/2013 : 1960 Age: 52Y Sex: M Patient Loc/Room #: [facility] FM/ Provider: Mayito Falcon MD, Family Practice OFFICE NOTE SITE: SUBJECTIVE: 52-year-old has a tick bite, which he pulled off yesterday from his anterior portion of his left axilla. It has been itching and there is redness around it. He thinks he got it all out, butit was difficult. He states he has removed a number of them from his dog. Otherwise, no other symptoms. OBJECTIVE: Blood pressure 118/74, temp 96.7, weight 350 pounds. Patient has about a 2.5 cm area of erythema around scab. Did not see any tick foreign bodies. Did not see an EM rash. ASSESSMENT: Local reaction to a deer tick bite. He did bring in the deer tick. We will go ahead and put him on doxycycline 200 mg x1 dose, but told him to watch for flu-like illness, fever, chills, or an EM rash Mayito Falcon MD Family Practice cc: /DB Job ID: [id number] /sep Document ID: [id number] Mayito Falcon MD - 02/17/2013 10:19 AM CDT This note has been dictated. Georgie Hernandez LPN - 02/17/2013 10:08 AM CDT Nurse Documentation Fall Risk Assessment: Current Mobility Status: Independent. Fall precautions have been implemented per policy. documented in this encounter Plan of Treatment Not on filedocumented as of this encounter Visit Diagnoses Diagnosis Tick bite - Primary Other, multiple, and unspecified sites, insect bite, nonvenomous, without mention of infection documented in this encounter Historical Medications This list may reflect changes made after this encounter. Medication Sig Dispensed Refills Start Date End Date eletriptan (RELPAX) 20 Take 1 Tab by mouth 0 01/2605/06/2015 MG tablet one time as needed for Migraine. may repeat in 2 hours if necessary added in this encounter Care Teams Er Nurse Relationship Specialty Start Date End Date Bebo Pillai MD PCP - General Family Medicine 02/17/[address] [place] [address] documented as of this encounter
--- OUTSIDE RECORDS SUMMARY | 2022-06-16 15:11 | XMS_ITS | Encounter Summary ---
:1960 Author Organization [employer] Address [address] [address] Phone Care Team Providers Name Role Phone Bebo Pillai MD Primary Care Provider [phone] Encounter Details Date Type Department Care Team Description 02/14/2021 ALLIED HEALTH/NURSE [facility] Lab VISIT [address] [place], [place] [id number] Social History Tobacco Use Types Packs/Day Years [...] Name Priority Date/Time Associated Diagnosis Comme nts HEMOGRAM Routine 02/14/2021 4:41 PM Blood per rectum Resul ts for this CDT procedure are i n the results section . documented in this encounter Results (ABNORMAL) HEMOGRAM (02/14/2021 4:41 PM CDT) P athologist Signature WBC 14.9 (H) 3.2 - 11.0 02/14/2021 [facility] 10*9/L 4:44 PM CDT - [facility] RBC 5.13 4.14 - 5.76 02/14/2021 [facility] 10*12/L 4:44 PM CDT [facility] HGB 14.8 12.9 - 16.9 02/14/2021 [facility] g/dL 4:44 PM CDT [facility] HCT 44.8 38.4 - 49.7 02/14/2021 [facility] % 4:44 PM CDT [facility] MCV 87.3 81.4 - 99.0 02/14/2021 [facility] fL 4:44 PM CDT [facility] MCH 28.8 26.7 - 33.1 02/14/2021 [facility] pg 4:44 PM CDT - [facility] MCHC 33.0 31.6 - 35.5 02/14/2021 [facility] g/dL 4:44 PM CDT - [facility] RDW 12.3 11.3 - 14.6 02/14/2021 [facility] % 4:44 PM CDT - [facility] PLT 321 130 - 375 02/14/2021 [facility] 10*9/L 4:44 PM [facility] Specimen Anatomical Collection Method / Collection Time [place] Time (Source) Location / Volume Laterality Blood BLOOD SPECIMEN / Venipuncture / 02/14/2021 4:41 2020 4:41 Unknown Unknown PM CDT PM CDT Kade Reeder MD EC HEMATOLOGY ORDERABLES Performing Organization Address City/State/ZIP Code Phon e Number [facility] [address] [place], [place] [address] LABORATORY documented in this encounter Visit Diagnoses Diagnosis Blood per rectum Hemorrhage of rectum and anus documented in this encounter Care Teams Bearing Ring Assembler Relationship Specialty Start Date End Date Bebo Pillai MD PCP - General Family Medicine 02/17/[address] [place] [address] documented as of this encounter
--- OUTSIDE RECORDS SUMMARY | 2022-06-16 15:11 | XMS_ITS | Encounter Summary ---
:1960 Author Organization [facility] Address [address] [place] [address] Care Team Providers Name Role Phone Unavailable Primary Care Provider Unavailable Encounter Details Date Type Department Care Team Description 09/23/2020 Orders Only Department of Family Katiuska Monique , Medicine, [place] [facility], in [place] [address] [place] [address] [address] [facility] [place] [address] [phone] Social History Tobacco Use Types Packs/Day Years Used Date Smoking Tobacco: Never Assessed Sex Assigned at Date Recorded Not on file documented as of this encounter Plan of Treatment Not on filedocumented as of this encounter Visit Diagnoses Not on filedocumented in this encounter Additional Health Concerns Infection Onset Date Last Indicated Resolved Time COVID19 Pending 09/22/2020 09/22/2020 09/23/2020 1:05 PM JIG GRINDER [id number]: Patient has met criteria for release from isolation. Please see nursing note for further details. 09/22/2020 09/22/20202020 2:35 PM JIG GRINDER Tata Moore, R.N. documented as of this encounter
--- OUTSIDE RECORDS SUMMARY | 2022-06-16 15:11 | XMS_ITS | Encounter Summary ---
:1960 Author Organization [employer] Address [address] [address] Phone Care Team Providers Name Role Phone Bebo Pillai MD Primary Care Provider [phone] Reason for Visit Reason Comments Cold Symptoms Cough Office Visit (Routine) - Closed Specialty Diagnoses / Procedures Referred By Contact Refer red To Contact Family Medicine Diagnoses cold Celso Gil MD Ancillary, [place] Walk In Procedures WALK IN [address] [facility] [place] [address] Referral ID Status Reason Start Date Expiration Date Visits Requ ested Visits Authorized [id number] Closed 05/06/2015 05/06/2015 3 3 Encounter Details Date Type Department Care Team Description 05/06/2015 Office Visit [facility] Ancillary, [place] Acut e bronchiolitis due [facility] to unspecified organism [address] [place] [address] (Primary Dx) [place] [address] Social History Tobacco Use Types Packs/Day Years [...] Sign Reading Time Taken Comments Blood Pressure 126/72 05/06/2015 10:27 AM CDT Pulse 74 05/06/2015 10:27 AM CDT Temperature 37.6 ??C (99.6 ??F) 05/06/2015 10:27 AM CDT Respiratory Rate - - Oxygen Saturation 99% 05/06/2015 10:27 AM CDT Inhaled Oxygen Concentration - - Weight 155.6 kg (343 lb) 05/06/2015 10:27 AM CDT Height - - Body Mass Index - - documented in this encounter Ordered Prescriptions Prescription Sig Dispensed Refills Start Date End Date doxycycline (VIBRAMYCIN) Take 1 Cap by mouth 20 Cap 0 05/13/2017 100 MG capsuleIndications: two times a day. Acute bronchiolitis due to unspecified organism albuterol HFA (PROAIR HFA, Inhale 2 Puffs into 1 Inhaler 0 05/06/2015 05/13/2017 VENTOLIN HFA) 108 (90 the lungs four BASE) MCG/ACT inhalation times a day. Shake aerosolIndications: Acute before using. bronchiolitis due to unspecified organism documented in this encounter Progress Notes Bebo Sierra MD - 05/06/2015 1:49 PM CDT [facility] Patient Name: BEBO JIMENEZ Date of Service: 05/06/2015 : 1960 Age: 54Y Sex: M Site MRN: Patient Loc/Room #: PARWI/ Provider: Bebo Sierra MD, Family Practice URGENT CARE SITE: [facility] CHIEF COMPLAINT: Cough. SUBJECTIVE: Patient has been coughing productively for 3 days with green sputum. He had a sore throat initially but that is gone. Pain is 1 out of 10 in his chest, a burning sensation, worse with coughing, better with nothing. He has had clear nasal drainage. No sinus pressure. No shortness of breath.He felt very feverish with sweats and chills both. No other GI or complaints noted. MEDICATION: None. ALLERGIES: NONE. SOCIAL HISTORY: Patient is a nonsmoker. PAST MEDICAL HISTORY: Obesity. OBJECTIVE: Weight 341, temp 99.6, blood pressure 126/72. HEENT revealed normal TMs and throat without inflammation noted. Neck - supple. No adenopathy. Thyroid normal. Chest - abnormal with bilateral rhonchi and wheezing noted throughout both lung hess. Cardiac - normal S1 and S2. No rub, murmur, orgallop. ASSESSMENT: Acute bronchitis. PLAN: I placed him on doxycycline 100 b.i.d. for 10 days and albuterol inhaler 2 puffs q.i.d. p.r.n.and to follow up for poor progress. Bebo Sierra MD [facility] cc: /MGW Job ID: [id number] /pl Document ID: [id number] Bebo Sierra MD - 05/06/2015 10:42 AM CDT .dict documented in this encounter Plan of Treatment Not on filedocumented as of this encounter Visit Diagnoses Diagnosis Acute bronchiolitis due to unspecified o rganism - Primary documented in this encounter Discontinued Medications Medication Sig Discontinue Reason Start Date End Date eletriptan (RELPAX) Take 1 Tab by mouth Course of treatment 013 05/06/2015 20 MG tablet one time as needed completed for Migraine. may repeat in 2 hours if necessary documented as of this encounter Care Teams Leak Detection Engineer Relationship Specialty Start Date End Date Bebo Pillai MD PCP - General Family Medicine 02/17/[address] [place] [address] [facility] [place] [address] documented as of this encounter
--- OUTSIDE RECORDS SUMMARY | 2022-06-16 15:11 | XMS_ITS | Encounter Summary ---
:1960 Author Organization [employer] Address [address] [place] [phone] Phone Care Team Providers Name Role Phone Bebo Pillai MD Primary Care Provider [phone] Reason for Visit Reason Comments Chest Pain Encounter Details Date Type Department Care Team Description 05/13/2017 - Emergency [facility] Morgan Falcon, est pain, 05/14/2017 Center Emergency DO unspecified type Department [address] (Primary Dx) [address] [place] [address] [place] [address] [place] [phone] Social History Tobacco Use Types Packs/Day Years [...] Sign Reading Time Taken Comments Blood Pressure 169/96 05/13/2017 11:57 PM CDT Pulse 78 05/13/2017 11:57 PM CDT Temperature 36.6 ??C (97.9 ??F) 05/13/2017 11:06 PM CDT Respiratory Rate 18 05/13/2017 11:06 PM CDT Oxygen Saturation 97% 05/13/2017 11:57 PM CDT Inhaled Oxygen Concentration - - Weight 154.2 kg (340 lb) 05/13/2017 11:06 PM CDT Height 185.4 cm (6' 1) 05/13/2017 11:06 PM CDT Body Mass Index 44.86 05/13/2017 11:06 PM CDT documented in this encounter Functional Status Functional Status Response Date of Assessment Patient's Vision Adequate to Safely Complete Daily Yes 05/13/2017 Activities Patient's Memory Adequate to Safely Complete Daily Yes 05/13/2017 Activities Cognitive Status Response Date of Assessment Patient's Judgment Adequate to Safely Complete Daily Yes 05/13/2017 Activities documented as of this encounter Discharge Instructions AttachmentsThe following attachments cannot be sent through Care Everywhere. CHEST PAIN, UNCERTAIN CAUSE (CYMRAES)documented in this encounter Medications at Time of Discharge Medication Sig Dispensed Refills Start Date End Date HYDROcodone-acetaminop Take 1 Tab by mouth every 0 hen (NORCO) 7.5-325 MG six hours as needed for oral tablet Pain. Limit acetaminophen to 4000 mg per day from all sources. oxyCODONE 10 MG Take 10 mg by mouth every 0 immediate release four hours as needed for tablet Pain. documented as of this encounter Discharge Disposition Disposition Code Departure Means Destination Against Medical Advice or Discontinued Alf documented in this encounter ED Notes Morgan Falcon, - 05/13/2017 11:24 PM CDT Patient: Bebo Jimenez Means of Arrival: Ambulance Chief Complaint: Chest Pain History of Present Illness: HPI Patient is a pleasant 56-year-old male who presented to the emergency department today with concernsfor chest pain. 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 Early evening he thought his indigestionand either talk some Pepto-Bismol or Nexium, he is not sure what. Approximately 11:30 to 45 patient states he suddenly developed a bandlike area of pain across his chest. This was a bandlike area from the right side of his chest and left side of his chest and was approximately 1 inch wide. He reports the pain was severe, denies radiation of the pain. He is unsure exactly how long it lasted, but on a rrival to the emergency department it had resolved. He believes the duration was approximately 15-20minutes. Patient states the pain started to go away when he received aspirin given by EMS. He deniesany associated nausea or vomiting. He denies any associated shortness of breath. 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 He denies any history of heart disease, states asthma which is related to environmental exposures. Denies any recent illness. Denies any cough or congestion. Denies any other systemic complaints. Review of Systems: Review of Systems A 10 point review of systems was performed and all other systems were reviewed and negative unless noted above. No Known Allergies Prior to Admission Medication List Med List Status: Update Pending Set By: Mayito Ellsworth RN at 05/13/2017 11:06 PM HYDROcodone-acetaminophen (NORCO) 7.5-325 MG oral tablet Take 1 Tab by mouth every six hours as needed for Pain. Limit acetaminophen to 4000 mg per day fromall sources. oxyCODONE 10 MG immediate release tablet Take 10 mg by mouth every four hours as needed for Pain. Past Medical History: No past medical history on file. Past Surgical History: No past surgical history on file. Family History: No family history on file. Social History: He reports that he has never smoked. He does not have any smokeless tobacco history on file. Exam: Initial Vitals Most Recent Vitals Temp: 97.9 ??F (36.6 ??C) (05/13/172305) Temp: 97.9 ??F (36.6 ??C) (05/13/172305) Pulse: 74 (05/13/172305) Pulse: 78 (05/13/172356) Resp: 18 (05/13/172305) Resp: 18 (05/13/172305) BP: 146/75 (05/13/172305) BP: (!) 169/96 (05/13/172356) SpO2: 98 % (05/13/172305) SpO2: 97 % (05/13/172356) Physical Exam: Physical Exam GENERAL: Alert and oriented x 3, NAD HEENT: NC/AT. PERRLA, EOMFI. Nares patent bilaterally. NECK: Supple, no JVD. Trachea midline. No lymphadenopathy CHEST: CTA bilaterally, no wheezes or rales HEART: RRR without murmur. No gallops or rubs. ABDOMEN: Soft/NT/ND/active bowel sounds x 4. EXTREMITIES: Distal pulses intact x 4. 1+ peripheral edema of right distal lower extremities, trace edema left lower extremity. NEURO: CN II-XII grossly intact. Strength 5/5 in extremities x 4. SKIN: No rashes or obvious skin lesions. LYMPH: No lymphadenopathy noted in neck or axilla Psych: Patient expresses no suicidal or homicidal ideation Lab Results: Results for orders placed or performed during the hospital encounter of 05/13/17 D-DIMER Collection Time: 05/13/17 11:38 PM Result Value Ref Range D-Dimer 0.32 <=0.49 ug/mL FEU COMPREHENSIVE METABOLIC PANEL Collection Time: 05/13/17 11:37 PM Result Value Ref Range Sodium 141 134 - 143 mEq/L Potassium 4.4 3.4 - 5.1 mEq/L Chloride 107 99 - 110 mEq/L Carbon Dioxide 21 19 - 29 mEq/L Anion Gap 13.0 3.0 - 15.0 mEq/L Blood Urea Nitrogen 24 5 - 24 mg/dL Creatinine 0.92 0.70 - 1.20 mg/dL Glomerular Filtration Rate >60 >60 mL/min/1.73 m*2 Calcium 9.4 8.4 - 10.5 mg/dL Glucose 98 70 - 100 mg/dL Protein, Total 7.1 6.0 - 8.0 g/dL Albumin 3.8 3.5 - 5.0 g/dL Alkaline Phosphatase 97 40 - 150 IU/L Aspartate Aminotransferase 22 10 - 40 IU/L Alanine Aminotransferase 29 6 - 40 IU/L Bilirubin, Total 0.3 0.2 - 1.2 mg/dL TROPONIN I Collection Time: 05/13/17 11:36 PM Result Value Ref Range Troponin I 0.002 0 - 0.028 ng/mL HEMOGRAM/DIFFERENTIAL Collection Time: 05/13/17 11:36 PM Result Value Ref Range WBC 8.7 3.4 - 10.7 10*9/L RBC 4.71 4.20 - 5.90 10*12/L HGB 13.9 13.0 - 17.0 g/dL HCT 40.1 37.5 - 51.0 % MCV 85.1 82.0 - 99.0 fL MCH 29.5 27.0 - 34.0 pg MCHC 34.7 32.0 - 35.7 g/dL RDW 13.3 11.0 - 15.0 % PLT 250 150 - 400 10*9/L Neutrophils % 55.8 % Lymphocytes % 32.0 % Monocytes % 9.4 % Eosinophils % 1.8 % Basophils % 1.0 % Neutrophils Absolute 4.9 1.7 - 8.5 10*9/L Lymphocytes Absolute 2.8 0.9 - 3.6 10*9/L Monocytes Absolute 0.8 0.3 - 1.0 10*9/L Eosinophils Absolute 0.2 0.0 - 0.6 10*9/L Basophils Absolute 0.1 0.0 - 0.3 10*9/L Imaging Results: Imaging Results XR CHEST 2 VIEWS (In process) Result time 05/13/17 23:51:30 Procedure changed from XR CHEST 1 VIEW Personally reviewed.Clear chest. This will be over read by Radiology EKG. Personally reviewed. NSR. No concerning ST-T changes. Emergency Department Course: Patient is a pleasant 56-year-old male who presented to the emergency department today with concernsfor chest pain. Afebrile and hemodynamically stable on admission. He had been given aspirin by EMS before arrival. Chest pain protocol was initiated by nursing. IV access was established. Chest pain had resolved prior to presentation to the emergency department. EKG was obtained which showed normal sinus rhythm, no concerning ST-T changes. Laboratory work was obtained. This was grossly within normal limits. D-dimer negative making PE unlikely. Troponin negative, however obtained less than an hour after episode of chest pain. Patient was monitored on telemetry with no sign of arrhythmia. I spoke with patient about his results. Advised patient to be observed in the emergency department for the next several hours and then have troponin repeated as it may have been too soon for troponin to have entered the bloodstream. Patient expressed understanding of this and medical denies. He asked to be discharged without waiting for second troponin. Patient did sign out AGAINST MEDICAL ADVICE. Left emergencyDepartment in stable condition, advised to return if symptoms returned or worsened. ED Course Procedures: Procedures Assessment: Chest pain, unspecified type (primary encounter diagnosis) Plan: Discharge Prescriptions None Patient signed out AMA Morgan Alberto MD 05/14/17 0020 T Mayito Ellsworth RN - 05/13/2017 11:04 PM CDT Rec'd pt in room 1 via stretcher, accompanied by EMS, brought in for sudden onset of chest pain/pressure, CP protocol initiated. documented in this encounter Plan of Treatment Not on filedocumented as of this encounter Procedures Procedure Name Priority Date/Time Associated Comments Diagnosis XR CHEST 2 VIEWS STAT 05/13/2017 11:54 Chest pain, Results for this PM CDT unspecified type procedure a re in the results section. D-DIMER STAT 05/13/2017 11:38 Results for this PM CDT procedure are i n the results section. HOLD NA CITRATE STAT 05/13/2017 11:37 PM CDT COMPREHENSIVE STAT 05/13/2017 11:37 Results fo r this METABOLIC PANEL PM CDT procedure ar e in the results section. TROPONIN I STAT 05/13/2017 11:36 Results for this PM CDT procedure are i n the results section. HEMOGRAM/DIFF STAT 05/13/2017 11:36 Results fo r this PM CDT procedure are i n the results section. EKG 12-LEAD STAT 05/13/2017 11:05 Results for this PM CDT procedure are i n the results section. OXYGEN THERAPY STAT 05/13/2017 11:03 PM CDT documented in this encounter Results XR CHEST 2 VIEWS (05/13/2017 11:54 PM CDT) Anatomical Region Laterality Modality Chest Radiographic Imaging Specimen (Source) Anatomical Collection Method Collection Time Re ceived Time Location / / Volume Laterality 05/13/2017 11:54 PM CDT Narrative 05/14/2017 8:46 AM CDT This document is currently in Final Status Exam XR CHEST 2 VIEWS INDICATION: chest pain; FINDINGS: ??Negative chest. Electronically Signed: Vinay Hernandez MD 05/14/2017 8:46 AM Procedure Note Vinay Hernandez MD - 05/14/2017Forma tting of this note might be different from the original. This document is currently in Final Stat us Exam XR CHEST 2 VIEWS INDICATION: chest pain; FINDINGS: Negative chest. Electronically Signed: Vinay Hernandez MD 05/14/2017 8:46 AM Morgan Falcon DO EC DIAGNOSTIC IMAGING ORDERA BLES D-DIMER (05/13/2017 11:38 PM CDT) P athologist Signature D-Dimer 0.32 <=0.49 05/13/2017 [facility] ug/mL FEU 11:52 PM T [facility] Specimen Anatomical Collection Method / Collection Time [place] Time (Source) Location / Volume Laterality Blood specimen BLOOD SPECIMEN / Venipuncture / 05/13/2017 11:38 (specimen) Unknown Unknown PM CDT 11:38 PM CDT Narrative [facility] - 05/13/2017 11:52 PM CDT The negative predictive cutoff for aid in exclusion of VTE/DVT is <0.5 ug/ml FEU. Morgan Falcon DO EC HEMATOLOGY ORDERABLES Performing Organization Address City/[facility] Phon e Number [facility] [address] [address] 401 LABORATORY HOLD NA CITRATE (05/13/2017 11:37 PM CDT) Specimen Anatomical Collection Method / Collection Time [place] Time (Source) Location / Volume Laterality Blood specimen BLOOD SPECIMEN / Venipuncture / 05/13/2017 11:37 (specimen) Unknown Unknown PM CDT 11:37 PM CDT Morgan Falcon DO EC HEMATOLOGY ORDERABLES Performing Organization Address City/[facility] Phon e Number [facility] [address] [address] 401 LABORATORY COMPREHENSIVE METABOLIC PANEL (05/13/2017 11:37 PM CDT) athologist Signature Sodium 141 134 - 143 05/14/2017 [facility] mEq/L 12:02 AM [facility] Potassium 4.4 3.4 - 5.1 05/14/2017 . [facility] mEq/L 12:02 AM [facility] Chloride 107 99 - 110 05/14/2017 . [facility] mEq/L 12:02 AM [facility] Carbon Dioxide 21 19 - 29 05/14/2017 . [facility] mEq/L 12:02 AM [facility] Anion Gap 13.0 3.0 - 15.0 05/14/2017 . [facility] mEq/L 12:02 AM [facility] Blood Urea 24 5 - 24 05/14/2017 [facility] Nitrogen mg/dL 12:02 AM [facility] Creatinine 0.92 0.70 - 05/14/2017 [facility] 1.20 mg/dL 12:02 AM [facility] Glomerular >60 >60 05/14/2017 [facility] Filtration Rate mL/min/1.7 12:02 AM [facility] 3 m*2 LABORATORY Comment: Complications of CKD and risk o f cardiovascular disease increase when GFR is below 60ml.min/1.73m2. A persistently re duced GFR is a specific indication of Chronic Kidney Disease. * The eGFR calculation h as not been validated in patients >70yrs. Calcium 9.4 8.4 - 10.5 05/14/2017 12:[address] [facility] mg/dL [facility] Glucose 98 70 - 100 mg/dL 05/14/2017 12:02 AM [facility] Protein, Total 7.1 6.0 - 8.0 g/dL 05/14/2017 12:[address] [facility] Albumin 3.8 3.5 - 5.0 g/dL 05/14/2017 12:02 AM [facility] Alkaline Phosphatase 97 40 - 150 IU/L 05/14/2017 12:[address] [facility] Aspartate 22 10 - 40 IU/L 05/14/2017 12:02 AM [facility] Aminotransferase [facility] Alanine Aminotransferase 29 6 - 40 IU/L 05/14/2017 12 :[address] [facility] Bilirubin, Total 0.3 0.2 - 1.2 05/14/2017 12:02 AM [facility] Specimen Anatomical Collection Method / Collection Time [place] Time (Source) Location / Volume Laterality Blood specimen BLOOD SPECIMEN / Venipuncture / 05/13/2017 11:37 (specimen) Unknown Unknown PM CDT 11:40 PM CDT Narrative [facility] - 05/14/2017 12:02 AM CDT Current ADA criteria for Glucose: ?Normal: 70-99 mg/dL ?Impaired Fasting Glucose: 100-125 mg/dL ?Diabetes Mellitus: at or above 126 mg/dL The diagnosis of diabetes must be confir med on a subsequent day by measuring Fasting Plasma Glucose, 2-hr PG or random plasma glucose (if symptoms are present). Morgan Falcon DO EC CHEMISTRY ORDERABLES Performing Organization Address City/[facility]/ZIP [facility] Phon e Number [facility] [address] [phone] LABORATORY TROPONIN I (05/13/2017 11:36 PM CDT) athologist [facility] Troponin I 0.002 0 - 0.028 05/14/2017 [facility] ng/mL 12:01 AM CDT [facility] Specimen Anatomical Collection Method / Collection Time [place] Time (Source) Location / Volume Laterality Blood specimen BLOOD SPECIMEN / Venipuncture / 05/13/2017 11:36 (specimen) Unknown Unknown PM CDT 11:40 PM CDT Morgan Falcon DO EC CHEMISTRY ORDERABLES Performing Organization Address City/[facility]/ZIP [facility] Phon e Number [facility] [address] [address] 401 LABORATORY HEMOGRAM/DIFFERENTIAL (05/13/2017 11:36 PM CDT) athologist Signature WBC 8.7 3.4 - 10.7 05/13/2017 ST. 10*9/L 11:49 PM T [facility] RBC 4.71 4.20 - 05/13/2017 ST. 5.90 11:49 PM T [facility] 10*12/L [facility] HGB 13.9 13.0 - 05/13/2017 ST. 17.0 g/dL 11:49 PM T [facility] HCT 40.1 37.5 - 05/13/[address] 51.0 % 11:49 PM T [facility] MCV 85.1 82.0 - 05/13/2017 ST. 99.0 fL 11:49 PM [facility] MCH 29.5 27.0 - 05/13/2017 ST. 34.0 pg 11:49 PM [facility] MCHC 34.7 32.0 - 05/13/2017 ST. 35.7 g/dL 11:49 PM [facility] RDW 13.3 11.0 - 05/13/2017 ST. 15.0 % 11:49 PM [facility] PLT 250 150 - 400 05/13/2017 ST. 10*9/L 11:49 PM [facility] Neutrophils % 55.8 % 05/13/2017 ST. 11:49 PM [facility] Lymphocytes % 32.0 % 05/13/2017 ST. 11:49 PM [facility] Monocytes % 9.4 % 05/13/2017 ST. 11:49 PM [facility] Eosinophils % 1.8 % 05/13/2017 ST. 11:49 PM [facility] Basophils % 1.0 % 05/13/2017 ST. 11:49 PM [facility] Neutrophils 4.9 1.7 - 8.5 05/13/2017 [facility]. Absolute 10*9/L 11:49 PM [facility] Lymphocytes 2.8 0.9 - 3.6 05/13/2017 ST. Absolute 10*9/L 11:49 PM [facility] Monocytes 0.8 0.3 - 1.0 05/13/2017 ST. Absolute 10*9/L 11:49 PM [facility] Eosinophils 0.2 0.0 - 0.6 05/13/2017 ST. Absolute 10*9/L 11:49 PM [facility] Basophils 0.1 0.0 - 0.3 05/13/2017 [facility]. Absolute 10*9/L 11:49 PM [facility] Specimen Anatomical Collection Method / Collection Time [place] Time (Source) Location / Volume Laterality Blood specimen BLOOD SPECIMEN / Venipuncture / 05/13/2017 11:36 (specimen) Unknown Unknown PM CDT 11:40 PM CDT Morgan AYOUB HEMATOLOGY ORDERABLES Performing Organization Address City/State/[facility] Code Phon e Number [facility] [address] [place], [place] [address] [facility] LABORATORY EKG 12-LEAD (05/13/2017 11:05 PM CDT) P athologist Signature Ventricular Rate 72 BPM MUSE Atrial Rate 72 BPM MUSE P-R Interval 198 ms MUSE QRS Duration 100 ms MUSE QT 394 ms MUSE QTc 431 ms MUSE P [place] 40 degrees MUSE R [place] 6 degrees MUSE T [place] 39 degrees MUSE Specimen (Source) Anatomical Collection Method Collection Time Re ceived Time Location / / Volume Laterality 05/13/2017 11:05 PM CDT Narrative MUSE - 05/14/2017 5:05 AM CDT Confirming Doc MELIDA SHEPHERD MD Normal sinus rhythm Non-specific ST & T wave changes Baseline wander No previous ECGs available Procedure Note Melida Shepherd MD - 05/14/2017Formatt ing of this note might be different from the original. Confirming Doc MELIDA SHEPHERD MD Normal sinus rhythm Non-specific ST & T wave changes Baseline wander No previous ECGs available Authorizing Provider Result Marilou Falcon DO IP ECG ORDERABLES Performing Organization Address [facility] Phon e Number MUSE documented in this encounter Visit Diagnoses Diagnosis Chest pain, unspecified type - Primary documented in this encounter Administered Medications Inactive Administered Medications Medication Order MAR Action Action Date Dose Rate Site nitroglycerin (NITROSTAT) tablet 0.4 mg 0.4 mg, Sublingual, EVERY 5 MINUTES N EEDED, 3 doses, Starting on Samira 05/13/17 at 2303, Until Wed05/14/17 at 0429, Chest pain documented in this encounter Discontinued Medications Medication Sig Discontinue Reason Start Date End Date doxycycline (VIBRAMYCIN) Take 1 Cap by Deleted via home med 015 05/13/2017 100 MG mouth two times a review capsuleIndications: day. Acute bronchiolitis due to unspecified organism albuterol HFA (PROAIR Inhale 2 Puffs Deleted via home med 5 05/13/2017 HFA, VENTOLIN HFA) 108 into the lungs review (90 BASE) MCG/ACT four times a day. inhalation Shake before aerosolIndications: using. Acute bronchiolitis due to unspecified organism documented as of this encounter Historical Medications This list may reflect changes made after this encounter. Medication Sig Dispensed Refills Start Date End Date oxyCODONE 10 MG Take 10 mg by mouth every 0 immediate release four hours as needed for tablet Pain. HYDROcodone-acetaminop Take 1 Tab by mouth every 0 hen (NORCO) 7.5-325 MG six hours as needed for oral tablet Pain. Limit acetaminophen to 4000 mg per day from all sources. added in this encounter Active and Recently Administered Medications Times are shown in CDT. Scheduled Medication Order 05/12/2017 05/13/2017 05/14/2017 aspirin chewable tablet 324 mg 2309 (Not Given - Provider: Mayito Ellsworth RN - Reason: Taken at Home) 324 mg, Chew, ONCE, 1 dose, Samira 05/13/17 at 2305 PRN Medication Order 05/12/2017 05/13/2017 05/14/2017 nitroglycerin (NITROSTAT) tablet 0.4 mg 0.4 mg, Sublingual, EVERY 5 MINUTES N EEDED, 3 doses, Starting Samira 05/13/17 at 2303, Until Wed05/14/17 at 0429, Chest pain documented in this encounter Orders Medications Ordered That Might Not Have Count Last Ord ered Date First Ordered Date Been Administered aspirin chewable tablet 324 mg 1 05/13/2017 nitroglycerin (NITROSTAT) tablet 0.4 mg 1 05/13/20 Res[facility] Count Last Ordered Date First Ordered Date OXYGEN THERAPY 1 05/13/2017 Nursing Count Last Ordered Date First Ordered Date NURSING COMMUNICATION 1 05/13/2017 SALINE LOCK IV 1 05/13/2017 documented in this encounter Care Teams Kiln Drawer Relationship Specialty Start Date End Date Bebo Pillai MD PCP - General Family Medicine 02/17/[address] [place] [id number] documented as of this encounter
--- OUTSIDE RECORDS SUMMARY | 2022-06-16 15:11 | XMS_ITS | Encounter Summary ---
:1960 Author Organization [facility] Address [address] [place] [address] Care Team Providers Name Role Phone Unavailable Primary Care Provider Unavailable Reason for Visit Reason Onset Date Comments Testing For Upper Respiratory Virus Symptoms 09/22/2020 Encounter Details Date Type Department Care Team Description 09/22/2020 External Outreach Department of Eric Aguayo [facility] Medicine, Chay Maria D.O. Respiratory (Primary Building, in [address]) [place], [place] [address] [facility] [address] [place], [place] [phone] [address] (Work) [phone] Social History Tobacco Use Types Packs/Day Years Used Date Smoking Tobacco: Never Assessed Sex Assigned at Date Recorded Not on file documented as of this encounter Progress Notes Mohan Avila R.N. - 09/22/2020 10:41 AM CST Encounter created for symptomatic infectious disease screening with possible COVID, Influenza, and RSV testing. STRIAL REFRIGERATION MECHANIC documented in this encounter Plan of Treatment Not on filedocumented as of this encounter Procedures Procedure Name Priority Date/Time Associated Diagnosis Comme nts SARS CORONAVIRUS-2 Routine 09/22/2020 11:27 AM Infection Upper Results for this RNA, V INDUSTRIAL REFRIGERATION MECHANIC Respiratory procedure are i n the results section. documented in this encounter Results (ABNORMAL) SARS Coronavirus-2 RNA, V Symptomatic (09/22/2020 11:27 AM INDUSTRIAL REFRIGERATION MECHANIC) [facility] Method Time Signature SARS-CoV-2 Swab, 09/23/2020 MKTO Specimen Nasopharynx 1:04 PM INDUSTRIAL REFRIGERATION MECHANIC Source SARS CoV-2 Detected (A) Undetected 09/23/2020 [place] RNA, TMA 1:04 PM INDUSTRIAL REFRIGERATION MECHANIC Comment: SARS-CoV-2 RNA present. ----ADDITIONAL INFORMATION---- This molecular amplification test was pe rformed using the Aptima SARS-CoV-2 assay ([employer] on the Playmysongs tem under emergency use authorization (EUA) by the U.S. Food and Drug Administ emily. Fact sheets for this EUA assay can be fo und at the following links: For Healthcare Providers: https://www.fd a.gov/media/096632/download For Patients: https://www.fda.gov/media/ 699382/download Specimen Anatomical Collection Method Collection Time Receive d Time (Source) Location / / Volume Laterality Varies 09/22/2020 11:27 09/22/2020 (Nasopharynx) AM INDUSTRIAL REFRIGERATION MECHANIC 11:35 PM INDUSTRIAL REFRIGERATION MECHANIC Eric Castro D.O. LAB MICROBIOLOGY - GENERAL O PER Performing Organization Address City/State/[facility] Phon e Number [facility]- [address] [place] [address] [place] [address] [address] documented in this encounter Visit Diagnoses Diagnosis Infection Upper Respiratory - Primary documented in this encounter Additional Health Concerns Infection Onset Date Last Indicated Resolved Time COVID19 Pending 09/22/2020 09/22/2020 09/23/2020 1:05 PM INDUSTRIAL REFRIGERATION MECHANIC documented as of this encounter
--- OUTSIDE RECORDS SUMMARY | 2022-06-16 15:11 | XMS_ITS | Encounter Summary ---
:1960 Author Organization [facility] Address [address] [place] [address] Care Team Providers Name Role Phone Unavailable Primary Care Provider Unavailable Reason for Visit Reason Comments Patient Education Encounter Details Date Type Department Care Team Description 09/24/2020 Clinical Communication Division of Catarina Caal, Patient Education Internal Medicine in [place], [place] [address] [place] [address] [place] [phone] Social History Tobacco Use Types Packs/Day Years Used Date Smoking Tobacco: Never Assessed Sex Assigned at Date Recorded Not on file documented as of this encounter Plan of Treatment Not on filedocumented as of this encounter Visit Diagnoses Not on filedocumented in this encounter Additional Health Concerns Infection Onset Date Last Indicated Resolved Time [id number]: Patient has met criteria for release from isolation. Please see nursing note for further details. 09/22/2020 09/22/20202020 2:35 PM INSPECTOR AND TESTER Tata Moore, R.N. documented as of this encounter
--- OUTSIDE RECORDS SUMMARY | 2022-06-16 15:11 | XMS_ITS | Encounter Summary ---
:1960 Author Organization [facility] Address [address] [address] Phone Care Team Providers Name Role Phone Bebo Pillai MD Primary Care Provider [phone] Reason for Visit Reason Onset Date Comments Results 02/14/2021 Encounter Details Date Type Department Care Team Description 02/14/2021 [facility] Dora Balderas RN Results CARE [address] [place], [place] [id number] Social History Tobacco Use Types Packs/Day Years [...] 05/13/2017 Activities documented as of this encounter Miscellaneous Notes Telephone Encounter - Dora Balderas RN - 02/14/2021 5:04 PM CDT Machine Rope Maker updated patient on results of labs. Patient had questions regarding medication and provider transferred him over to talk with Provider. ----- Message from Kade Reeder MD sent at 02/14/2021 4:51 PM CDT ----- Notify, red blood count is normal, he does have elevated WBC, but this is probably from the high doses of Prednisone. If bleeding worsens come back in otherwise we will just watch things documented in this encounter Plan of Treatment Not on filedocumented as of this encounter Visit Diagnoses Not on filedocumented in this encounter Care Teams Batch Unloader Relationship Specialty Start Date End Date Bebo Pillai MD PCP - General Family Medicine 02/17/[address] [place] [id number] documented as of this encounter
--- OUTSIDE RECORDS SUMMARY | 2022-06-16 15:11 | XMS_ITS | Encounter Summary ---
:1960 Author Organization [facility] Address [address] [place] [address] Care Team Providers Name Role Phone Unavailable Primary Care Provider Unavailable Reason for Visit Reason Comments Follow-up Appointment Request (Routine) - Closed Specialty Diagnoses / Procedures Referred By Contact Refer red To Contact General Internal Diagnoses [facility] Medicine Procedures Referral ID Status Reason Start Date Expiration Date Visits Requ ested Visits Authorized [id number] Closed 09/23/2020 09/23/2021 1 1 Encounter Details Date Type Department Care Team Description 09/30/2020 Clinical Communication Division of General Internal Follow-up Medicine in [place], [place] [address] [place] [address] Social History Tobacco Use Types Packs/Day Years Used Date Smoking Tobacco: Never Assessed Sex Assigned at Date Recorded Not on file documented as of this encounter Miscellaneous Notes Telephone Encounter - Bridgette Goff M.A.N., R.N. - 09/30/2020 2:12 PM CST SUBJECTIVE CHIEF COMPLAINT / REASON FOR CALL Follow-up Information Discussed Mr. Jimenez contacted by nurse for day 10 follow-up regarding positive COVID-19 test result. We discussed the following symptoms to see if there was development of new or worsening symptoms since symptom onset. Today the patient reports the following symptoms: Fever (>100.4oF or subjective fever): No longer experiencing Shortness of breath: Never had Chest pain or chest tightness: Never had Cough: No longer experiencing Runny nose/congestion: Never had Sore throat: No longer experiencing Chills: No longer experiencing Muscle aches: No longer experiencing Diarrhea (more than 4 episodes a day): Never had Vomiting (more than 4 episodes a day): Never had Dizziness or lightheadedness: Never had Headache: Never had Fatigue: still a bit tired from sitting around Patient reports they were at a [employer] gathering one week prior to the onset of their symptoms: N/A CFCT Provider directs need for repeat PCR testing: No. Current CDC guidelines indicate release from isolation is appropriate when symptom improvement criteria have been met. Routine repeat testing is no longer advised unless directed by the provider based on individual patient criteria. Return to work/school assessment for patients living in the [facility] region Patient reports anticipated need for restrictions/modifications in order to return to work/school: no Patient reports anticipated need for repeat testing in order to return to work/school: no If either of the above questions was answered 'yes', [facility] Occupational Medicine will be notified and will contact the patient to regarding return to work needs. PLAN Disposition/Recommendation: Self-Care Based on the above symptom assessment: Recommend patient continue to wear his mask, stay 6 feet away from others, wash hands frequently andget the COVID-19 vaccination once available to him. After day 10 of home isolation, should symptoms return or new symptoms develop, contact your primarycare provider. When calling indicate you had previously tested positive for COVID-19 and have completed 10 days of home isolation. All employment decisions are made by individual employers. Patient advised to contact [facility] as appropriate on return to work status. Using established standards and provider plan of care for COVID-19 disease, the patient has completed CFCT program monitoring and is dismissed from the CFCT program. Information/Education: patient/caller able to teach back Caller agreeable to plan of care: yes The following references were used: nursing clinical judgement, CDC COVID-19 guidelines, CFCT current guidelines. 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 Please see nursing note for further details. 09/22/2020 09/22/20202020 2:35 PM ELECTRONIC PLOTTING SYSTEM OPERATOR Bridgette Goff M.A.Rosales., R.N. documented as of this encounter
--- OUTSIDE RECORDS SUMMARY | 2022-06-16 15:11 | XMS_ITS | Encounter Summary ---
:1960 Author Organization [facility] Address [address] [place] [address] Care Team Providers Name Role Phone Unavailable Primary Care Provider Unavailable Reason for Visit Reason Comments COVID Inquiry Encounter Details Date Type Department Care Team Description 09/22/2020 Clinical Communication Central Appointment KARENA Weldon Office in [address] [address] Social History Tobacco Use Types Packs/Day Years Used Date Smoking Tobacco: Never Assessed Sex Assigned at Date Recorded Not on file documented as of this encounter Miscellaneous Notes Telephone Encounter - Hollie Perez - 09/22/2020 10:37 AM CST COVID-19 Nurse Line Screening ASSESSMENT Combo COVID + Upper Respiratory Infection (URI) Screening Select the most appropriate pathway: : Adult Have you had close contact* with a person who has a LABORATORY CONFIRMED case of COVID-19 in the past 14 days?: No (Continue Screening) In the last 48 hours, have you had a fever* OR symptoms that are unrelated to a preexisting illness?: New change or loss of taste sensation, New loss of smell, Fever, New chills, New headache, New sorethroat Have you received a COVID-19 vaccine in the last 72 hours? : No vaccine received (Continue Screening) Do you have any of the following urgent symptoms?: No urgent symptoms noted (Continue Screening) Do you have any of the following respiratory syntonical virus (RSV) complications? : No complications noted (Continue Screening) Are all the following symptoms present: temperature of 100.0 degrees Fahrenheit or greater, muscle aches or headache AND a cough?: Yes all symptoms are present (Continue Screening) Do you have any of the following high risk influenza criteria?: Chronic pulmonary disease including asthma or COPD, Diabetes, Body Mass Index (BMI) 40 or greater or unsure* Symptom Onset Date of symptom onset: 09/18/20 Testing Recommendation Endpoint Is testing recommended? : Recommended to test PLAN Endpoint recommendation: Screening positive, testing indicated, advised to be swabbed for COVID-19 Only , sent to [facility] located at [address] [place] [address]. The entrance is on the north side of the building. You must call [phone] for an appointment time.Testing hours are Daily 9 am to 5 pm.When you arrive at the testing site: Remain in your vehicle and check-in by phone using the same appointment line number. and Please avoid using public transportation per CDC recommendation. If you do not have personal transportation please self- quarantine until a personal transportation option is available. Care Points: -Wash hands frequently with soap and water for at least 20 seconds -If soap and water are not available, use a hand facility practice specialist -Avoid touching your eyes, nose and mouth. [...] medications as needed for other symptoms. Education: Not applicable Patient agreeable to plan of care: Yes The following references were used: [facility] novel coronavirus (COVID- 19) resources TH INFORMATICS INSTRUCTOR documented in this encounter Plan of Treatment Not on filedocumented as of this encounter Visit Diagnoses Not on filedocumented in this encounter
--- OUTSIDE RECORDS SUMMARY | 2022-06-16 15:11 | XMS_ITS | Encounter Summary ---
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
--- OUTSIDE RECORDS SUMMARY | 2022-06-16 15:11 | XMS_ITS | Encounter Summary ---
:1960 Author Organization [facility] Address [address] [place] [address] Care Team Providers Name Role Phone Unavailable Primary Care Provider Unavailable Encounter Details Date Type Department Care Team Description 09/23/2020 Virtual Visit Department of Family Katiuska Monique COVID-19 Infection Medicine, [place] VALERIE White C.N JeyPJey [facility], [place] [address] [address] [place], [place] [address] [facility] [address] [place], [place] [phone] (Wo rk) [address] [phone] Social History Tobacco Use Types Packs/Day Years Used Date Smoking Tobacco: Never Assessed Sex Assigned at Date Recorded Not on file documented as of this encounter Progress Notes Katiuska Monique C.NJeyP., R.N. - 09/23/2020 1:15 PM CST Images from the original note were not included. TELEPHONE COMMUNICATION NOTE This was a telephone notification to Mr. Jimenez to notify them that their PCR test for SARS-CoV-2 (thevirus that causes COVID-19) has returned positive. The patient was interviewed, but not personally examined. Event Marketing Representative: no Currently Mr. Jimenez has the following symptoms:sore throat;myalgia;chills;anosmia/dysgeusia;cough Date of symptom onset: 09/18/20 Since onset, symptoms are about the same. Mr. Jimenez has the following risk factors for severe infection: Diabetes;Asthma Mr. Jimenez has been in the following facilities in the last 14 days: None Facility(s) name: Association with [facility]: None Employment/School: retired Last date at work/school: Additional household members: 1; None are sick PROBLEM LIST There is no problem list on file for this patient. RESULTS Microbiology Results (last 10 days) Procedure Component Value - Date/Time SARS Coronavirus-2 RNA, V Symptomatic [[id number]] (Abnormal) Collected: 09/22/20 1127 Lab Status: Final result Specimen: Varies from Nasopharynx Updated: 09/23/20 1305 SARS-CoV-2 Specimen Source Swab, Nasopharynx SARS CoV-2 RNA, TMA Detected Comment: SARS-CoV-2 RNA present. ----ADDITIONAL INFORMATION---- This molecular amplification test was performed using the Aptima SARS-CoV-2 assay ([employer] on the Welda System under emergency use authorization (EUA) by the U.S. Food and Drug Administration. Fact sheets for this EUA assay can be found at the following links: For Healthcare Providers: https://www.fda.gov/media/699795/download For Patients: https://www.fda.gov/media/451938/download SARS Coronavirus-2 RNA, V Symptomatic [[id number]] Collected: 09/15/20 1248 Lab Status: Final result Specimen: Varies from Nasopharynx Updated: 09/16/20 1250 SARS-CoV-2 Specimen Source Swab, Nasopharynx SARS CoV-2 RNA, TMA Undetected Comment: SARS-CoV-2 RNA absent. This result does not rule out COVID-19 in the patient, as the sensitivity of the test depends on the timing of the specimen collection and the quality of the specimen. Result should be correlated with patient's history and clinical presentation. ----ADDITIONAL INFORMATION---- This molecular amplification test was performed using the Aptima SARS-CoV-2 assay ([employer] on the Welda System under emergency use authorization (EUA) by the U.S. Food and Drug Administration. Fact sheets for this EUA assay can be found at the following links: For Healthcare Providers: https://www.fda.gov/media/010581/download For Patients: https://www.fda.gov/media/982884/download ASSESSMENT/PLAN #1 COVID-19 disease Upcoming [id number] appointments: No Recommendations: Day 0 is: 09/18/20 Remote monitoring not indicated or declined. Patient will follow with [facility] CFCT nursing only. Initialeducation call not indicated. Resources available in the portal message and clinical note. Self-isolation: at least 10 days from symptom onset with at least 72 hours of symptom improvement and fever resolution w/o use of anti-pyretics (Tylenol, NSAIDs) Patient is interested in learning about COVID experimental therapies. Mr. Jimenez was advised to continue to monitor their symptoms including dyspnea, chest pain, cough, fevers, lightheadedness/dizziness and vomiting/diarrhea. If symptoms are worsening, please contact the [facility] CFCT nursing team at [phone]. ??? Worsened shortness of breath ??? New or worsening cough ??? New productive cough or cough with blood ??? New chest pain or pain with breathing ??? Fevers, chills, sweats ??? Vomiting or diarrhea ??? Lightheadedness ? ? New temperature > 38.3 ??C ??? Fast heart rate ??? Fast breathing rate o If directed to the Emergency Room or other care facility, the patient was reminded to - Inform EMS of positive COVID result and wear a mask prior to EMS arrival if available. - If patient is well enough to transport themselves to the emergency room, they should drive themselves (not use taxi, ride-share or public transport). ??? We strongly recommend continuing self-isolation until advised otherwise. o Mr. Jimenez is aware that they need to: - Remain at home unless requiring medical care - Separate themselves from other people in the home - Avoid sharing personal household items - Clean and disinfect 'high-touch' surfaces daily - Wear a facemask when around other people and cover coughs/sneezes - Practice good hand hygiene - Avoid touching your eyes, nose, and mouth ??? Self-isolation should be continued until the following criteria are met: ??? Minimum isolation as specified above o AND ??? At least 3 days (72 hours) have passed since recovery defined as resolution of fever without theuse of fever-reducing medications o AND ??? Improvement in symptoms (e.g., cough, shortness of breath, diarrhea) o The above isolation recommendation may need to be adjusted based on the clinical course. - https://www.Apni[employer]ure.com/watch?time_continue=6&v=BaTY7eZoVXu&feature=emb_logo o Testing prior to release from isolation is NOT recommended by CDC or [facility] Infection Prevention and Control for clinical purposes except in extremely rare cases. o The patient was also advised to follow final recommendations as per local public health department/occupational health if relevant. ??? Advised to contact their employer's occupational health division to notify them of positive test o If the patient and/or their employer have questions about return to work best practices, they should contact [facility] Occupational Medicine at [email or web address]. o The patient should receive approval from their employer's occupational health division before returning to work. ??? Recommend self isolation for all household members/close contacts. o If any of these individuals are immunocompromised or have serious chronic medical conditions, please have them contact their primary care physician to let them know they have been exposed to close contact with COVID-19 o If unwell, recommend contacting their health care provider. Presenting directly to of the ED can be considered in the case of severe symptoms. o These individuals should call ahead to minimize wait times. The [facility] COVID Triage Line can be reached at [phone]. ??? Mr. Jimenez was advised that COVID-19 is a notifiable disease and that they will be contacted by public health for contact tracing. Please review the links below for additional education. o [facility] recommendations on isolation - https://www.[facility].org/patient-education?VID=VID-77740921 o Additional information about COVID-19 - https://www.cdc.gov/coronavirus/2019-ncov/ o Cognitive Behavior Therapy-Insomnia to help improve sleep - https://mccidcontent.[facility].edu/PatientEducation/PatientLearning/index.html#/ o Building Resiliency During the COVID-19 Pandemic - https://[facility] center[facility]/2020/PatientEducation/content/index.html#/ ??? Consider donating convalescent plasma once you have recovered from your illness (14 days after symptoms have resolved) o Survey to assess eligibility: https://redcap2.[facility].edu/redcap/surveys/?s=4VFS5SXM0Z and/ or contact convalescent.plasma@[facility] o More information is available at - https://www.uscovidplasma.org/ - https://ccpp19.org/ - https://covidplasma.org/ This note is being cc'ed to the patient's primary care physician for their situational awareness only. The COVID-19 Frontline Care Team will follow up on next steps related to the COVID-19 infection. From a [facility] employee exposure standpoint if Mr. Jimenez was seen in person: No additional action needed if contact with the patient occurred while either: ??? Staff and patient were both wearing face masks OR ??? Staff were wearing face masks and eye protection If there is concern for staff exposure due to individual PPE breach, please touch base with Occupational Health. Katiuska Monique C.N.P., R.N. COVID-19 Frontline Care Team [facility] This was a virtual visit. The patient was not seen face to face because of COVID-19. 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 Please see nursing note for further details. 09/22/2020 09/22/20202020 2:35 PM COMPUTER EQUIPMENT REPAIRER Tata Moore, R.N. documented as of this encounter
== END 2022-06-16 15:04 | disposition home or self-care (01) ==
LOC: MRI 15:03
PROVIDERS: PCP Internal Medicine; Visit Provider Orthopaedic Surgery
DX: M25.522 Pain in left elbow (principal); D17.9 Benign lipomatous neoplasm, unspecified
CPT/HCPCS: 73218

== ENCOUNTER 2022-12-03 07:40 | Day surgery (SDC) | payer BC, SELFPAY ==
[2022-12-02] MEDS: LACTATED RINGERS 1000 ML 1,000 ML 100 ML IV (12:25)
[2022-12-03] VITALS (13 sets, daily range): BP systolic 103–134; BP diastolic 59–82; PULSE 70–84; RESP 16; TEMP 36–36.3; O2SAT 94–99; BMI 47.8
[2022-12-03] MEDS: SODIUM CHLORIDE 0.9 % (FLUSH) 10 ML SYRINGE IVF (08:21)
[2022-12-03] MEDS: MIDAZOLAM HCL 1 MG/ML inj IVP (09:40)
--- NOTE | 2022-12-03 09:46 | SUR.PREOP ---
TIME?OUT:?0932 PT/RN/MDA?VERIFICATION?OF?SURGICAL?SITE left shoulder,?PROCEDURE nerve block,?AND?CONSENT OBTAINED?PRIOR?TO?INVASIVE?PROCEDURE.
[2022-12-03] MEDS: fentaNYL 100 MCG/2 ML inj IVP (09:54)
--- NOTE | 2022-12-03 10:01 | P.NB_ITS ---
Nerve Block Nerve Block Time Seen by Provider: 09:45 Date Seen: 12/03/22 Type of block requested by surgeon for post-operative analgesia: supraclavicular Side: left Time out performed: Yes Verification of patient name: Yes Verification of date of : Yes Site marking: site marked Name of person performing procedure: Willie Continuous monitoring Was continuous monitoring of O2 sat, B/P, quality assurance monitor, recorded every 15 minutes?: Yes Procedure Checklist: sterile prep, needles and gloves Ultrasound guided. Images saved: Yes Medications given in 5ml increments after negative aspiration: Ropivicaine %: 0.5 mL: 20 Needle gauge: 22 Decadron (mg): 10 Precedex (mcg): 25 Patient tolerated procedure well: Yes Block Charges Block Charge (with Pro Fee): Brachial Plexus Use of Ultrasound Machine for Block: Yes- US Guidance/pain block
--- NOTE | 2022-12-03 10:01 | W.ANESCHARGE ---
Anesthesia Charges Start Date/Time Anesthesia Start Date: 12/03/22 Anesthesia Start Time: 10:12 Stop Date/Time Anesthesia Stop Date: 12/03/22 Anesthesia Stop Time: 12:03
[2022-12-03] MEDS: CEFAZOLIN 3 GM in 0.9 % SODIUM CHLORIDE Mini-bag 100 ML IVPB (10:30)
--- NOTE | 2022-12-03 11:35 | PM.ORPRC ---
Procedure Note Date of procedure: 12/03/22 Procedure: PREOPERATIVE DIAGNOSIS: Left shoulder long head of the biceps tear POSTOPERATIVE DIAGNOSIS: Left shoulder long head of the biceps tear NAME OF OPERATION: Left shoulder arthroscopic biceps stump debridement, anterior labral debridement, mini open subpectoral biceps tenodesis SURGEON: Chu Colon MD [employer] SUPERVISOR: Elle Denny PA-C ANESTHESIA: Supraclavicular block plus general endotracheal ESTIMATED BLOOD LOSS: 5 mL COMPLICATIONS: None SPECIMENS: None DRAINS: None PREOPERATIVE ANTIBIOTICS: Ancef 3 grams INDICATIONS: The patient is a 62-year-old with a history of left shoulder pain secondary to the above diagnoses. Despite appropriate non operative management, they continue to have symptoms. Operative intervention was recommended. The risks, benefits and expected outcomes were discussed in detail. These included but were not limited to: Infection, bleeding, injury to blood vessel or nerve, venous thromboembolism. All questions were answered to their satisfaction. PROCEDURE: A supraclavicular block was placed by Anesthesia. General anesthesia was administered. The patient was placed in the high beach chair position. The left shoulder was prepped and draped in the usual sterile fashion. The glenohumeral joint was infiltrated with 20 mL of normal saline with epinephrine. The posterior portal was established, the arthroscope was introduced. The anterior portal was established, Diagnostic arthroscopy was performed with findings as follows: The biceps is torn and retracted out of the glenohumeral joint. There is a large stump still attached to the supraglenoid tubercle. There is a marked amount of surrounding hyperemic synovitis. Anterior labrum shows a significant amount of degenerative tearing, the rest of the labrum is normal. Articular surfaces on the humeral head and glenoid showed diffuse grade 2/3 change. There are no loose bodies. Rotator cuff is intact. The stump of the biceps was debrided with the shaver and the Arthrex [place]. Likewise the anterior labrum was debrided with the shaver. Arthroscopic instruments were removed. A longitudinal incision was made over the anterior aspect of the arm, at the level of the musculotendinous junction of the biceps. Subcutaneous dissection was taken with Mets to biceps. The biceps was hung up in the bicipital groove. Therefore, we followed up as far proximally as we could under the pectoralis and divided it here. We then placed a whipstitch in the biceps and secured it in the sub pec position with an Arthrex FiberTak. This provided an excellent tenodesis of the biceps. There was no tension on the repair with the elbow at 0?. The wound was irrigated with normal saline off the pump. Subcutaneous tissues were closed with a 3-0 Vicryl. Skin was closed with a 3-0 Monocryl in a subcuticular fashion. A dry dressing, polar care and sling were applied. Sponge and needle counts were correct x2. The patient tolerated the procedure well. There were no apparent complications. They were carefully transferred to the hospital bed and taken to the postanesthesia care unit in satisfactory condition. PLAN: The patient will be discharged to home. Gentle active range of motion of the elbow as tolerates. No lifting, no pulling for 6 weeks postoperatively. DC sling when comfortable. They will follow up in the office next week for a wound check and an AP and transscapular Y-view of the shoulder prior to being seen.
--- NOTE | 2022-12-03 12:07 | W.ANESCHARGE ---
Anesthesia Charges Start Date/Time Anesthesia Start Date: 12/03/22 Anesthesia Start Time: 10:12 Stop Date/Time Anesthesia Stop Date: 12/03/22 Anesthesia Stop Time: 12:03
[2022-12-03] MEDS: LACTATED RINGERS 1000 ML 1,000 ML 100 ML IV (12:17)
== END 2022-12-03 13:43 | disposition home or self-care (01) ==
PROVIDERS: PCP Internal Medicine; Visit Provider Orthopaedic Surgery
PROC: (CPT 23412; principal; 2022-12-03 10:00)
DX: S46.212A Strain of muscle, fascia and tendon of other parts of biceps, left arm, initial encounter (principal)
CPT/HCPCS: 29822; 23430; 01630; 64415; 76942; 82962; C1713; J0330; J0690; J1100; J2250; J2405; J2704; J2795; J3010; J7120; L3670

== ENCOUNTER 2024-12-26 08:43 | Day surgery (SDC) | payer MEDICARE, BC, SELFPAY ==
[2024-12-26] VITALS (28 sets, daily range): BP systolic 114–167; BP diastolic 67–99; PULSE 55–107; RESP 12–20; TEMP 36.5–37.3; O2SAT 93–100; BMI 43.6
[2024-12-26] MEDS: CELECOXIB 200 MG CAPSULE PO (08:53)
[2024-12-26] MEDS: SODIUM CHLORIDE 0.9 % (FLUSH) 10 ML SYRINGE IVF (09:40)
[2024-12-26] MEDS: LACTATED RINGERS 1000 ML 1,000 ML 100 ML IV ×2 (09:40→11:38)
[2024-12-26] MEDS: ACETAMINOPHEN 500 MG TABLET 1000 MG PO ×3 (09:58→22:03)
[2024-12-26] MEDS: OXYCODONE (CR) 10 MG TAB.ER.12H PO (09:59)
[2024-12-26] MEDS: fentaNYL 100 MCG/2 ML inj IVP (10:50)
[2024-12-26] MEDS: MIDAZOLAM HCL 1 MG/ML inj IVP (10:50)
--- NOTE | 2024-12-26 10:58 | SUR.PREOP ---
TIME?OUT:?1148, left knee PT/RN/MDA?VERIFICATION?OF?SURGICAL?SITE,?PROCEDURE,?AND?CONSENT OBTAINED?PRIOR?TO?INVASIVE?PROCEDURE.
--- NOTE | 2024-12-26 11:00 | SUR.OPER ---
PATIENT QUESTIONS ANSWERED SATISFACTORILY PREOPERATIVELY.? PATIENT BROUGHT TO OR #2 PER CART AFTER ADMINISTRATION OF A BLOCK.? Patient positioned supine on OR #2 bed.? The perioperative?team supported arms bilaterally on arm boards.? Final approval of positioning by surgeon.?
--- NOTE | 2024-12-26 11:06 | P.NB_ITS ---
Nerve Block Nerve Block Time Seen by Provider: 10:30 Date Seen: 12/26/24 Type of block requested by surgeon for post-operative analgesia: adductor canal Side: left Time out performed: Yes Verification of patient name: Yes Verification of date of : Yes Site marking: site marked Name of person performing procedure: Tomasa Paulson Assistants, if any: Raphael Morfin Continuous monitoring Was continuous monitoring of O2 sat, B/P, station installer, recorded every 15 minutes?: Yes Procedure Checklist: sterile prep, needles and gloves Ultrasound guided. Images saved: Yes Medications given in 5ml increments after negative aspiration: Ropivicaine %: 0.5 mL: 20 Needle gauge: 20 Patient tolerated procedure well: Yes Block Charges Block Charge (with Pro Fee): Sciatic Nerve Use of Ultrasound Machine for Block: Yes- US Guidance/pain block
--- NOTE | 2024-12-26 11:07 | P.NB_ITS ---
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 Images saved: Yes Medications given in 5ml increments after negative aspiration: Ropivicaine %: 0.5 mL: 12 Needle gauge: 22 Patient tolerated procedure well: Yes Block Charges Block Charge (with Pro Fee): Genicular Nerve Block Use of Ultrasound Machine for Block: Yes- US Guidance/pain block
[2024-12-26] MEDS: TRANEXAMIC ACID 100 MG/ML INJ 1000 MG IV (11:38)
--- NOTE | 2024-12-26 12:50 | CRLHL7_ITS ---
For Patients: As a result of the Cures Act, medical imaging exams and procedure reports are released immediately into your electronic medical record. You may view this report before your referring provider. If you have questions, please contact your health care provider. Indication: LT KNEE POST OP Technique: Two views left knee Findings/Impression: Hardware from a left total knee arthroplasty is in satisfactory position. Bone alignment is normal. No sign of acute fracture. Postop changes are within normal limits. Dictated by Mayito Chambers MD @ 12/27/2024 1:26:39 PM (Electronically Signed)
--- NOTE | 2024-12-26 12:52 | PM.ORPRC ---
Procedure Note Date of procedure: 12/26/24 Procedure: PREOPERATIVE DIAGNOSIS: Left knee osteoarthritis, right knee osteoarthritis POSTOPERATIVE DIAGNOSIS: Left knee osteoarthritis, right knee osteoarthritis NAME OF OPERATION: Left total knee arthroplasty, right knee steroid injection SURGEON: Chu Colon MD [facility] OPERATIONS INTELLIGENCE CHIEF: BRENDA Gee ANESTHESIA: General ESTIMATED BLOOD LOSS: 0 mL COMPLICATIONS: None SPECIMENS: None DRAINS: None PREOPERATIVE ANTIBIOTICS: Ancef 3 grams, antibiotic impregnated cement IMPLANTS: 1. J&J Attune revision CRS # 7 posterior stabilized femur, 14 mm x 50 mm cemented stem 2. # 7 revision CRS fixed-bearing tibia, 14 mm x 50 mm cemented stem 3. # 7 posterior stabilized, 5 mm fixed-bearing polyethylene 4. 38 patella INDICATIONS: The patient is a 64-year-old with a longstanding history of severe, unrelenting left knee pain secondary to end-stage (grade IV) left knee osteoarthritis. Despite appropriate nonoperative management, including activity modification, anti-inflammatories, lxth-jov-ongrzoy pain medication, bracing, physical therapy, and injections they continue to have pain and disability. Operative intervention was offered. The risks, benefits and expected outcomes were discussed in detail. These included but were not limited to: Infection, bleeding, injury to blood vessel or nerve, venous thromboembolism. All questions were answered to their satisfaction. Use of an commercial lines account assistant was necessary throughout the case for patient positioning and safety, soft tissue retraction, and closure. A modifier 22 should be added to this case. The patient's weight of 138 kg with a BMI of 44 and previous surgery with extensive scarring made the dissection more difficult. Additionally, to reduce the risk of aseptic loosening, stemmed components were used. These factors added time and cost to complete the case. PROCEDURE: The patient was placed supine on the operating table. General anesthesia was administered. The commercial lines account assistant made sure the patient was positioned appropriately. The lower extremity was prepped and draped in the usual sterile fashion. The limb was exsanguinated with the Martín bandage. The pneumatic tourniquet was inflated to 300 mmHg. The previously placed anterior incision was made with the knee in flexion. Subcutaneous dissection was sharply taken through fascial layer #1. Full-thickness medial and lateral flaps were elevated. The commercial lines account assistant retracted the soft tissues and protected them throughout the case. A standard subvastus approach was made. The patella was subluxed. The infrapatellar fat pad was debrided. The menisci and cruciate ligaments were sharply d?brided. Marginal osteophytes were d?brided with the rongeur. The drill was used to penetrate the femoral canal. The canal was aspirated and irrigated with pulse lavage. The intramedullary femoral guide was placed for a 5-degree valgus cut, removing 10 mm off the distal femur. The saw was used to make the cut. Whitesides line and the trans epicondylar axis were marked. The femoral sizing guide was pinned onto the distal femur. Three degrees of external rotation nicely parallels the transepicondylar axis. Pins were placed for posterior referencing. The four-in-one cutting guide was pinned onto the distal femur. The anterior, posterior, and chamfer cuts were made. The commercial lines account assistant protected the collateral ligaments. The revision trial was placed. The box cuts were made. The drill was used x2. The stemmed, boxed trial was placed and was an excellent fit. Attention was then turned to the proximal tibia. The intramedullary tibial guide was placed for a neutral varus/valgus cut with 3 degrees of posterior slope, removing 2 mm based off the medial tibial surface. The commercial lines account assistant protected the collateral ligaments and the neurovascular bundle. The saw was used to make the cut. Trial components were placed. The knee was nicely balanced in both flexion and extension. The trial components were removed. The tray was placed in appropriate rotation, parallel to our tibial cutting pins. It was pinned by the commercial lines account assistant and the drill x2 was used. The stemmed tibial trial was placed. The punch was used. The tray was removed. The punch was used again. Attention was then turned to the patella. [place] patellar thickness was 27 mm. The lobster claw resection guide was used with the 9.5 mm hellen. The saw was used to make the cut. Drill holes were made by the commercial lines account assistant. The trial was placed and was an excellent fit. Cancellous surfaces were irrigated with pulse lavage and thoroughly dried by the commercial lines account assistant. We cemented the tibial component, then the femoral component. We impacted the 5 mm polyethylene onto the tibial tray. The knee was brought into full extension. We then cemented the patellar component. Excessive cement was removed. The cement was allowed to harden. The knee was taken through a range of motion and was found to be nicely balanced in both flexion and extension. The patella tracks centrally. The commercial lines account assistant did a three minute dilute Betadine solution soak. The commercial lines account assistant irrigated the wound with 3 liters of normal saline via pulse lavage. The commercial lines account assistant reapproximated the extensor mechanism with #1 Vicryl in an interrupted [id number] fashion. The commercial lines account assistant then ran the extensor mechanism with a #1 PDO Stratafix. The commercial lines account assistant closed the subcutaneous tissues with a 3-0 Stratafix and the skin with a running 3-0 Stratafix in a subcuticular fashion. Glue was used to seal the skin. The commercial lines account assistant placed a dry dressing. Sponge and needle counts were correct x2. The right knee was sterilely prepped, the joint was then injected with 4 mL 0.25% Marcaine without epinephrine, 40 mg Depo-Medrol. The patient tolerated the procedure well. There were no apparent complications. They were carefully transferred to the hospital bed and taken to the postanesthesia care unit in satisfactory condition. PLAN: The patient will be mobilized with physical therapy. Aspirin will be used for DVT prophylaxis. They will be discharged to home once medically appropriate.
[2024-12-26] MEDS: methylPREDNISolone acetate 80 MG/ML INJ 40 MG INTRA-ARTI (13:20)
[2024-12-26] MEDS: BUPIVACAINE 0.25% 30 ML 4 ML INJECTION (13:20)
--- NOTE | 2024-12-26 13:28 | P.ANES_ITS ---
Anesthesia Charges Start Date/Time Anesthesia Start Date: 12/26/24 Anesthesia Start Time: 11:06 Stop Date/Time Anesthesia Stop Date: 12/26/24 Anesthesia Stop Time: 13:32 Coding CPT Codes CPT Codes: ANESTH KNEE ARTHROPLASTY - 44245 ([id number]) P3 - PATIENT W/SEVERE SYS DISEASE, QZ - OIL EXPERT SVC W/O CUFF SETTER BY
--- NOTE | 2024-12-26 13:28 | W.ANESCHARGE ---
Anesthesia Charges Start Date/Time Anesthesia Start Date: 12/26/24 Anesthesia Start Time: 11:06 Stop Date/Time Anesthesia Stop Date: 12/26/24 Anesthesia Stop Time: 13:32 Coding CPT Codes CPT Codes: ANESTH KNEE ARTHROPLASTY - 09200 ([id number]) P3 - PATIENT W/SEVERE SYS DISEASE, QZ - DISPLAY CARVER SVC W/O WEB DESIGNER DEVELOPER BY
[2024-12-26] MEDS: fentaNYL 100 MCG/2 ML inj 50 MCG IVP ×2 (13:48→13:55)
[2024-12-26] MEDS: HYDROmorphone 0.5 mg/0.5 ml inj IVP ×4 (14:12→23:42)
--- NOTE | 2024-12-26 14:40 | SUR.PHASEI ---
patient met discharge criteria per anesthesia
--- NOTE | 2024-12-26 14:42 | P.IMCN_ITS ---
Date of Consult Patient: Elisabeth Patient Consult date: 12/26/24 Requesting Physician: Orthopedics Primary Care Provider: Sonia Gordon Consult Narrative Narrative: Bebo Jimenez is a 64 year old male with a h/o chronic back pain for which he has an implanted back stimulator who underwent an elective left total knee replacement by Dr. Colon today for severe osteoarthritis. Postoperatively he is having quite a bit of pain in his left knee. He tells me he has not yet restarted his back stimulator, but plans to do so now. After I saw him, Dr. Colon saw him and spoke with me. Dr. Colon called anesthesia to place a block for pain. When anesthesia arrived to do so, Bebo was already feeling better (he had had 10mg po oxycodone around the time I saw him earlier), and declined the block procedure. Review of Systems Status of ROS: Reports: 6 or more systems reviewed and unremarkable except as noted in History and below [facility] Medical History (Updated 12/26/24 @ 18:24 by Marcela Roberts MD) Lumbar disc herniation ?M51.26 - Other intervertebral disc displacement, lumbar region (ICD-10) Bilateral leg edema ?R60.0 - Localized edema (ICD-10) Decreased hearing of both ears ?H91.93 - Unspecified hearing loss, bilateral (ICD-10) Displacement of intervertebral disc between L4 and L5 ?M51.26 - Other intervertebral disc displacement, lumbar region (ICD-10) Bilateral primary osteoarthritis of knee ?M17.0 - Bilateral primary osteoarthritis of knee (ICD-10) Left elbow tendinitis ?M77.8 - Other enthesopathies, not elsewhere classified (ICD-10) Chronic pain syndrome ?G89.4 - Chronic pain syndrome (ICD-10) Unspecified asthma ?J45.909 - Unspecified asthma, uncomplicated (ICD-10) Moderate recurrent major depression ?F33.1 - Major depressive disorder, recurrent, moderate (ICD-10) Anxiety ?F41.9 - Anxiety disorder, unspecified (ICD-10) Migraine ?G43.909 - Migraine, unspecified, not intractable, without status migrainosus (ICD-10) Other spondylosis with radiculopathy, lumbosacral region ?M47.27 - Other spondylosis with radiculopathy, lumbosacral region (ICD-10) Type 2 diabetes mellitus without complication ?E11.9 - Type 2 diabetes mellitus without complications (ICD-10) Vitamin D deficiency ?E55.9 - Vitamin D deficiency, unspecified (ICD-10) Obesity ?E66.9 - Obesity, unspecified (ICD-10) Branch retinal vein occlusion with macular edema of left eye ?H34.8320 - Tributary (branch) retinal vein occlusion, left eye, with macular edema (ICD-10) Pain medication agreement ?Z02.89 - Encounter for other administrative examinations (ICD-10) Low back pain ?M54.50 - Low back pain, unspecified (ICD-10) Shoulder pain ?M25.519 - Pain in unspecified shoulder (ICD-10) Hypertension ?I10 - Essential (primary) hypertension (ICD-10) Sleep apnea ?G47.30 - Sleep apnea, unspecified (ICD-10) Surgical History History of total left knee replacement (12/26/24) ?Z96.652 - Presence of left artificial knee joint (ICD-10) S/P insertion of spinal cord stimulator ?Z96.89 - Presence of other specified functional implants (ICD-10) Status post arthroscopy of left shoulder (12/03/22) ?Z98.890 - Other specified postprocedural states (ICD-10) History of arthroscopy of left shoulder (10/14/95) ?Z98.890 - Other specified postprocedural states (ICD-10) History of arthroscopy of left knee ?Z98.890 - Other specified postprocedural states (ICD-10) History of ankle surgery ?Z98.890 - Other specified postprocedural states (ICD-10) History of ankle surgery (11/20/16) ?Z98.890 - Other specified postprocedural states (ICD-10) S/P medial meniscectomy of right knee (12/14/17) ?Z98.890 - Other specified postprocedural states (ICD-10) Status post arthroscopy of right shoulder (08/17/19) ?Z98.890 - Other specified postprocedural states (ICD-10) History of arthroscopy of left shoulder (12/09/21) ?Z98.890 - Other specified postprocedural states (ICD-10) H/O hernia repair ?Z98.890 - Other specified postprocedural states (ICD-10) ?Z87.19 - Personal history of other diseases of the digestive system (ICD-10) Hx of cholecystectomy ?Z90.49 - Acquired absence of other specified parts of digestive tract (ICD- 10) Hx of appendectomy ?Z90.49 - Acquired absence of other specified parts of digestive tract (ICD- 10) Social History (Updated 12/26/24 @ 17:18 by Marcela Roberts MD) Narrative: , [place]. Denies tobacco, alcohol or illicit drug use. 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 What is your current living situation?: I presently have a place to live Problems where you live: no known problems In the past 12 months, utilities in danger of being shut off: no In past 12 months, lack of transportation kept you from medical appts, meetings, work, or getting things needed for daily living: no In the past 12 mos, have been you worried that your food would run out before you had money to buy more?: never true In the past 12 mos, the food you bought just didn't last and you didn't have money to buy more?: never true Smoking Status: Never smoker Do you use any of these nicotine containing products: Smokeless Tobacco Second hand tobacco smoke exposure: No How often do you have a drink containing alcohol: 2-3 times a week How many standard drinks containing alcohol do you have on a typical day: 3 or 4 AUDIT-C Alcohol total score: 4 Non-prescribed substance use: denies use Caffeine: Yes Meds Home Medications and Allergies Home Medications ?Medication ?Instructions ?Recorded ?Confirmed ?Type hydrocodone 7.5 mg-acetaminophen 1 tab PO Q4H PRN 05/04/22 12/26/24 History 325 mg tablet tizanidine 4 mg tablet 4 mg PO Q6H PRN 01/13/23 12/26/24 History albuterol sulfate 90 mcg/actuation 1 - 2 puff inhalation Q4H PRN 09/29/24 0 12/26/24 History aerosol inhaler hydroxyzine HCl 25 mg tablet 25 mg PO Q6-8H PRN 12/26/24 12/26/24 History semaglutide 1 mg/dose (4 mg/3 mL) 1 mg subcut QWEEK 12/26/24 12/26/24 History subcutaneous pen injector (Ozempic) Home Medication Comments: Cuts tizanidine in half and takes the halves throughout the evening, usually a total of 2.5 tabs per evening. Stopped ozempic before surgery. Allergies Allergy/AdvReac Type Severity Reaction Status Date / Time Cat hair extract Allergy Severe Difficulty Uncoded 09/13/24 13:19 Breathing Exam Narrative: Exam Narrative: General: No acute distress. Awake alert oriented x3. HEENT: Normocephalic atraumatic, pupils equally round and reactive to light and accommodation. Oropharynx clear. Mucous membranes are moist. No cervical lymphadenopathy, thyromegaly or carotid bruits. No JVD. Cardiovascular: Regular rate and rhythm. No murmurs, gallops, or rubs. Chest: No increased work of breathing. Clear to auscultation bilaterally. No crackles or wheezes. Abdomen: Bowel sounds present. Soft, nondistended, nontender. No hepatosplenomegaly or masses. Extremities: Left knee bandage is clean, dry, and intact. No edema, no cyanosis or clubbing. Skin: No jaundice, no pallor, no rashes on visible skin. Const: Vital Signs, click to edit/add: Vital Signs - 24 hr 12/26/24 09:20 12/26/24 10:50 12/26/24 10:55 Temperature 98.4 F Pulse Rate 79 66 55 L Respiratory Rate 20 20 20 Blood Pressure 145/92 H 140/88 H 135/82 Pulse Oximetry 97 100 98 Oxygen Delivery Me thod Room Air Nasal Cannula Nasal Cannula Oxygen Flow Rate 2 2 12/26/24 13:28 12/26/24 13:35 12/26/24 13:40 Temperature 99.1 F 99.1 F 99.1 F Pulse Rate 79 78 77 Respiratory Rate 12 12 12 Blood Pressure 161/87 H 167/91 H 163/86 H Pulse Oximetry 97 95 94 Oxygen Delivery Me thod Room Air Room Air Room Air Oxygen Flow Rate 12/26/24 13:45 12/26/24 13:50 12/26/24 13:55 Temperature 99.1 F 99.1 F 99.1 F Pulse Rate 74 76 80 Respiratory Rate 12 12 13 Blood Pressure 161/87 H 158/85 H 166/89 H Pulse Oximetry 93 97 95 Oxygen Delivery Me thod Room Air Room Air Room Air Oxygen Flow Rate 12/26/24 14:00 12/26/24 14:05 12/26/24 14:10 Temperature 99.1 F 99.1 F 99.1 F Pulse Rate 75 80 77 Respiratory Rate 12 15 17 Blood Pressure 155/81 H 154/99 H 163/94 H Pulse Oximetry 94 94 94 Oxygen Delivery Me thod Room Air Room Air Room Air Oxygen Flow Rate 12/26/24 14:15 12/26/24 14:20 12/26/24 14:25 Temperature 98 F 98 F 98 F Pulse Rate 80 81 75 Respiratory Rate 12 16 15 Blood Pressure 157/88 H 157/98 H 157/89 H Pulse Oximetry 95 93 95 Oxygen Delivery Me thod Room Air Room Air Room Air Oxygen Flow Rate Assessment and Plan Assessment and plan (1) History of total left knee replacement: Problem comment: - Left total knee arthroplasty, right knee steroid injection. Dr. Colon, 12/26/24 - routine postop cares - pain control improving, continue oral pain medications with IV Dilaudid for breakthrough, continue use of implanted back stimulator - VTE prophylaxis with twice a day aspirin Status: Acute (2) Bilateral primary osteoarthritis of knee: Status: Chronic (3) Hypertension: Problem comment: - patient does not take any antihypertensives, monitor blood pressure Status: Chronic (4) Sleep apnea: Problem comment: - encourage use of CPAP at night Status: Chronic
[2024-12-26] MEDS: OXYCODONE 5 MG TABLET PO ×6 (14:48→23:34)
--- NOTE | 2024-12-26 15:45 | RESP.RT ---
Pt's CPAP failed inspection and he cannot use in hospital. It is not clean and filter and interfaces are dirty. Reports using tapwater only in unit. Attempted to educate pt on cleaning and distilled water use, Replied I have lived with a lot of should not haves and I am just fine
[2024-12-26] MEDS: CEFAZOLIN 3 GM in 0.9 % SODIUM CHLORIDE Mini-bag 100 ML IVPB (18:35)
--- NOTE | 2024-12-26 19:25 | PC.NURSE ---
End of shift: VS WNL. Afebrile. Ambulates 1 assist, GB, W. Rates pain a 5 on left knee, pain meds offered and given with relief. CMS intact. Left knee dressing C/D/I. Tolerating regular diet.
[2024-12-26] MEDS: ASPIRIN 81 MG TABLET EC PO (21:07)
[2024-12-26] MEDS: SENNOSIDES 1 TAB TABLET 2 TAB PO (21:07)
[2024-12-26] MEDS: TIZANIDINE HCL 4 MG TABLET 2 MG PO (23:34)
[2024-12-27] VITALS (7 sets, daily range): BP systolic 90–111; BP diastolic 53–68; PULSE 73–76; RESP 16; TEMP 36.6; O2SAT 94–96
[2024-12-27] MEDS: CEFAZOLIN 3 GM in 0.9 % SODIUM CHLORIDE Mini-bag 100 ML IVPB (03:23)
[2024-12-27] MEDS: OXYCODONE 5 MG TABLET PO ×2 (03:24→08:31)
[2024-12-27] MEDS: ACETAMINOPHEN 500 MG TABLET 1000 MG PO (03:24)
[2024-12-27] MEDS: TIZANIDINE HCL 4 MG TABLET 2 MG PO (03:25)
[2024-12-27 06:50] LABS: Basophils Percent Auto 0.2 % (0.0-3.0); Eosinophils Percent Auto 0.7 % (0.0-7.0); Hematocrit 37.8 % (37.0-53.0); Hemoglobin* 12.4 gm/dL (13.5-17.5); Immature Granulocytes Pct Auto 0.2 %; Lymphocytes Percent Auto 15.8 % (20-44); Mean Corpuscular HGB Conc 33 gm/dL (32-36); Mean Corpuscular Hemoglobin 29 pg (26-34); Mean Corpuscular Volume 89 fL (80-100); Monocytes Percent Auto 13.8 % (0.0-11.0); Neutrophils Percent Auto 69.3 % (42.0-72.0); Platelet Count* 300 K/uL (140-440); RDW Coefficient of Variation % 13.6 % (11.5-15.5); Red Blood Count 4.24 m/uL (4.30-5.90); White Blood Count* 12.07 K/uL (4.50-11.00)
[2024-12-27 06:52] LABS: Slide Review Reflex No
[2024-12-27 07:02] LABS: Potassium* 4.2 mmol/L (3.6-5.1); Sodium* 135 mmol/L (135-149)
[2024-12-27 07:03] LABS: INR 1.15 (0.91-1.10); Prothrombin Time 15.6 Seconds
[2024-12-27 07:05] LABS: Blood Urea Nitrogen* 18 mg/dL (7-30); Est. Creatinine Clearance* 76.04; Estimated Glomerular Filt Rate 84 ml/min
--- NOTE | 2024-12-27 07:31 | PC.NURSE ---
Pt alert oriented and vitally stable. Pain rated 8-10/10, prn oxy given. Pt stated breakthrough pain rated 10/10, prn dilaudid given. Pt stated improvement. Pt states pain feels improved and more managed than post op, stating ?It was the most pain I have ever felt.? Up walking independently, tolerating well. At 0300 BP 95/53, pt asymptomatic, up independently, pain controlled. Staff continued to recheck, BP remained low though MAP was above 65. Pt in bed, appears to be resting, call light within reach.?
[2024-12-27] MEDS: ASPIRIN 81 MG TABLET EC PO (08:30)
[2024-12-27] MEDS: SENNOSIDES 1 TAB TABLET 2 TAB PO (08:31)
--- NOTE | 2024-12-27 08:31 | PM.ORPN ---
Subjective Subjective Time Seen by Provider: 07:45 Date Seen: 12/27/24 Principal diagnosis: Status post left knee replacement Interval history: Sang is comfortable. Last evening he had significant pain. He has been ambulating frequently which has been helpful. He will discharge today to home. Ortho Exam Narrative Exam Narrative: Alert and oriented x3. Patient is in no acute distress. Converses without labored breathing. Hearing is grossly intact. Ambulates with a Walker. Examination of the left knee shows the dressing is intact. Hematoma anterior knee. There is no erythema or warmth or sign of infection. Calves are soft and nontender. He is able to straight leg raise. CMS intact left lower extremity. Const Vital Signs, click to edit/add: Vital Signs - 24 hr 12/26/24 09:20 12/26/24 10:50 12/26/24 10:55 Temperature 98.4 F Pulse Rate 79 66 55 L Pulse Rate [Right Pulse Oximeter] Respiratory Rate 20 20 20 Blood Pressure 145/92 H 140/88 H 135/82 Blood Pressure [Left Arm] Pulse Oximetry 97 100 98 Oxygen Delivery Method Room Air Nasal Cannula Nasal Cannula Oxygen Flow Rate 2 2 12/26/24 13:28 12/26/24 13:35 12/26/24 13:40 Temperature 99.1 F 99.1 F 99.1 F Pulse Rate 79 78 77 Pulse Rate [Right Pulse Oximeter] Respiratory Rate 12 12 12 Blood Pressure 161/87 H 167/91 H 163/86 H Blood Pressure [Left Arm] Pulse Oximetry 97 95 94 Oxygen Delivery Method Room Air Room Air Room Air Oxygen Flow Rate 12/26/24 13:45 12/26/24 13:50 12/26/24 13:55 Temperature 99.1 F 99.1 F 99.1 F Pulse Rate 74 76 80 Pulse Rate [Right Pulse Oximeter] Respiratory Rate 12 12 13 Blood Pressure 161/87 H 158/85 H 166/89 H Blood Pressure [Left Arm] Pulse Oximetry 93 97 95 Oxygen Delivery Method Room Air Room Air Room Air Oxygen Flow Rate 12/26/24 14:00 12/26/24 14:05 12/26/24 14:10 Temperature 99.1 F 99.1 F 99.1 F Pulse Rate 75 80 77 Pulse Rate [Right Pulse Oximeter] Respiratory Rate 12 15 17 Blood Pressure 155/81 H 154/99 H 163/94 H Blood Pressure [Left Arm] Pulse Oximetry 94 94 94 Oxygen Delivery Method Room Air Room Air Room Air Oxygen Flow Rate 12/26/24 14:15 12/26/24 14:20 12/26/24 14:25 Temperature 98 F 98 F 98 F Pulse Rate 80 81 75 Pulse Rate [Right Pulse Oximeter] Respiratory Rate 12 16 15 Blood Pressure 157/88 H 157/98 H 157/89 H Blood Pressure [Left Arm] Pulse Oximetry 95 93 95 Oxygen Delivery Method Room Air Room Air Room Air Oxygen Flow Rate 12/26/24 14:33 12/26/24 14:49 12/26/24 15:00 Temperature 97.7 F 98 F Pulse Rate 77 79 Pulse Rate [Right Pulse Oximeter] Respiratory Rate 16 18 16 Blood Pressure 155/87 H 155/83 H Blood Pressure [Left Arm] Pulse Oximetry 96 96 97 Oxygen Delivery Method Room Air Room Air Room Air Oxygen Flow Rate 12/26/24 15:04 12/26/24 15:19 12/26/24 15:34 Temperature 98.5 F 98 F 97.9 F Pulse Rate 82 80 82 Pulse Rate [Right Pulse Oximeter] Respiratory Rate 18 16 18 Blood Pressure 150/88 H 157/90 H 159/89 H Blood Pressure [Left Arm] Pulse Oximetry 98 96 96 Oxygen Delivery Method Room Air Room Air Room Air Oxygen Flow Rate 12/26/24 16:26 12/26/24 16:56 12/26/24 17:56 Temperature 97.9 F 98 F 98.1 F Pulse Rate 90 87 97 Pulse Rate [Right Pulse Oximeter] Respiratory Rate 18 16 18 Blood Pressure 145/89 H 160/85 H 116/67 Blood Pressure [Left Arm] Pulse Oximetry 96 97 95 Oxygen Delivery Method Room Air Room Air Room Air Oxygen Flow Rate 12/26/24 19:00 12/26/24 20:16 12/26/24 21:00 Temperature 98.0 F 98.5 F Pulse Rate 90 106 H 107 H Pulse Rate [Right Pulse Oximeter] Respiratory Rate 16 18 18 Blood Pressure 116/80 114/76 135/81 Blood Pressure [Left Arm] Pulse Oximetry 96 96 95 Oxygen Delivery Method Oxygen Flow Rate 12/26/24 23:00 12/26/24 23:00 12/26/24 23:00 Temperature 97.8 F Pulse Rate Pulse Rate [Right Pulse Oximeter] 106 H Respiratory Rate 16 18 Blood Pressure Blood Pressure [Left Arm] 123/78 Pulse Oximetry 95 98 Oxygen Delivery Method Room Air Room Air Oxygen Flow Rate 12/27/24 03:00 12/27/24 03:55 12/27/24 05:28 Temperature Pulse Rate Pulse Rate [Right Pulse Oximeter] 73 Respiratory Rate 16 Blood Pressure Blood Pressure [Left Arm] 95/63 90/57 L 102/53 L Pulse Oximetry 94 Oxygen Delivery Method Room Air Oxygen Flow Rate 12/27/24 06:15 12/27/24 06:19 Temperature Pulse Rate Pulse Rate [Right Pulse Oximeter] 76 Respiratory Rate Blood Pressure Blood Pressure [Left Arm] 91/61 95/63 Pulse Oximetry Oxygen Delivery Method Oxygen Flow Rate Assessment and Plan Assessment and plan (1) Status post left knee replacement: Problem details: 12/26/2024 Status: Acute Assessment and Plan: Plan for discharge is today to home if they meet discharge criteria. DVT prophylaxis includes aspirin 81 mg twice daily x1 month, Compression stockings as needed for swelling. Frequent ambulation, every hour throughout the day. Remove dressing in 1 week. Observe wound and phone Orthopedics with any questions or concerns Return to clinic in 1 week for a wound check Return to clinic in 6 weeks with surgeon Minimize narcotic use. Wean off and discontinue soon as possible. Activities as tolerated. No strenuous activity. Outpatient physical therapy as scheduled. Ice and elevate the operative extremity. No restriction on ice.
--- NOTE | 2024-12-27 11:25 | PC.NURSE ---
end of shift. pt has been pleasant,. knee pain 05/06. he is getting po pain meds, SL is patent,. he is eating, drinking and voiding, he is up with SBA, PT and OT saw him and he is ok to be up by him self. dressing is C/D/I. active ice is on. went over over discharge packet with pt. SL was d/c intact. 2 active ice sent home with pt. he got a w/c ride out
== END 2024-12-27 10:15 | disposition home or self-care (01) ==
LOC: OR 08:48 → MEDSURG 08:49
PROVIDERS: PCP Internal Medicine; Visit Provider Orthopaedic Surgery
PROC: (CPT 27447; principal; 2024-12-26 11:00)
DX: M17.0 Bilateral primary osteoarthritis of knee (principal); G89.18 Other acute postprocedural pain; E11.9 Type 2 diabetes mellitus without complications; E66.9 Obesity, unspecified; Z68.41 Body mass index [BMI] 40.0-44.9, adult; G47.30 Sleep apnea, unspecified; I10 Essential (primary) hypertension; Z79.82 Long term (current) use of aspirin; Z79.85 Long-term (current) use of injectable non-insulin antidiabetic drugs; G89.29 Other chronic pain; M54.9 Dorsalgia, unspecified; Z96.82 Presence of neurostimulator; Z51.89 Encounter for other specified aftercare
CPT/HCPCS: 27447; 20610; 01402; 36415; 51702; 64445; 64454; 73560; 76942; 82565; 82962; 84132; 84295; 84520; 85025; 85610; 97110; 97112; 97116; 97140; 97161; 97162; 97165; 97535; A9270; C1776; J0665; J0690; J1010; J1171; J2250; J2795; J3010; J7120

== ENCOUNTER 2025-02-06 09:00 | Outpatient (RCR) | payer MEDICARE, BC, SELFPAY ==
--- NOTE | 2024-12-29 08:26 | PT.OPEX ---
PT [place] Outpatient Eval PT [facility] Outpatient Eval Start: 12/29/24 07:20 Freq: Status: Active Protocol: Document 12/29/24 07:20 HLA (Rec: 12/29/24 08:21 HLA [id number]) E-signed By Rocio Granados, PT, DPT Physical Therapy Outpatient Evaluation Insurance Information Insurance Name [employer] Medical Diagnosis L TKA Treating Diagnosis weakness, impaired ROM, pain, impaired amb after L TKA Referring MD Colon Subjective Preferred Name Sang Subjective Pain since returning home has been 'ok.' Notes block didn't work well in the hospital. He has an implanted device in his back. Takes hydrocodone for that and conts with it after TKA. Did do his ex. Up with his walker short bouts in the home. Has NICE machine but hasn't used it. 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 Balance fair + with walker no stairs at home Posture flexed hips, hips in ER with gt Sensation/Reflexes denies n/t Other/Pertinent Objective L knee AAROM with strap: 7-100 degrees seated circumference: mid patella 55 cm 7 cm distal to patella 49 cm 7 cm proximal to patella 61 cm Functional Test Performed & Score LEFS 21/80 Assessment Assessment/Impression Patient underwent TKA on . Hx of DM, implanted device spine for pain for facet deformities, depression, apnea with CPAP. He reports surgery went well, pain overnight at hospital with block not working well. He did return home with friend's help. is disabled and unable to assist him. He lives in 1 level, 0 stairs to enter-has ramp. Has been not been using NICE machine/compression and will start that today. Did use an ice pack. Pt also did his ex. Today, he presents with edema L LE consistent with TKA , surgical bandage intact, no drainage. He transfers slowly, independently and amb 200 feet x 2 with walker, flexed hips, ER of hips, vc posture and heel toe gt. Performed TKA ex with cues, assist. AAROM L knee 7-100 degrees by end of session with overpressure. Therapist instructed pt in positioning, use of ice, activity level, bed mobility, transfers, gt with walker, stairs and car transfers today . Patient is able to . Gentle massage to surgical limb to reduce pain, edema. Patient presents with edema, pain surgical leg, impaired ROM, impaired strength, impaired transfers and impaired ambulation. PT is indicated 2x/week PT for strengthening, ROM, transfer training, gt training, manual techniques, balance exercise, stairs instruction. Patient's goals are to . Primary Functional Limitations impaired ROM L knee, impaired strength, impaired amb, impaired mobility, pain L knee Plan of Care Rehabilitation Potential Good Physical Therapy Goals Within 10-12 weeks: 1. Pt will have knee AROM 0- 120 degrees for transfers, ADLs, and stairs independence. 2. Pt will amb 20 min with se cane or no device as indicated, safely and independently for community and household ambulation. 3. 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 4. Pt will ascend/descend 13 stairs with railing independently for community mobility. Coordination/Communication With Referral Source,Patient Caregiver,Employer,Booking Supervisor ([employer]) Treatment Plan/Direct Interventions Gait Training,Ice/Cold/ Vasopneumatic,Joint Mobilization,Manual Therapy, Neuromuscular Re-ed,Orthotics/ Braces,Self-Care/Home Management,Therapeutic Activities,Therapeutic Exercises Frequency/Duration 2x/week x 10-12 weeks Patient Will Be Discharged From Therapy Completion of LTG(s),Skills Plateau,Independent w/HEP, Independently Progressing Evaluation Billing Untimed Code Treatment Minutes 15 PT Eval No Charge No Complexity Low Certification Information Initial Certification Date 12/29/24 Ending Certification Date 03/28/25 Provider Signature Required Yes Provider Signature Shows Agreement With POC & Medical Necessity Physician NPI Number Write NPI# Here Physician Comment/Change : Physician Signature & Date Requested Please Sign/Date Here
== END 2025-02-22 15:16 | disposition home or self-care (01) ==
PROVIDERS: PCP Internal Medicine; Visit Provider Orthopaedic Surgery
DX: Z47.1 Aftercare following joint replacement surgery (principal); Z96.652 Presence of left artificial knee joint; Z51.89 Encounter for other specified aftercare
CPT/HCPCS: 97110; 97112; 97116; 97140; 97161; A9270; J0330; J0690; J1100; J1171; J2250; J2405; J2704; J3010; J3490

== ENCOUNTER 2025-06-21 06:44 | Day surgery (SDC) | payer MEDICARE, BC, SELFPAY ==
[2025-06-21] VITALS (10 sets, daily range): BP systolic 108–159; BP diastolic 61–89; PULSE 58–78; RESP 12–20; TEMP 36.7–37.2; O2SAT 96–100; BMI 43.0
--- NOTE | 2025-06-21 07:38 | SUR.PREOP ---
pt states that he's lost a large amount of weight and is not longer classified as a diabetic and no longer has to check his glucose levels.
[2025-06-21] MEDS: SODIUM CHLORIDE 0.9 % (FLUSH) 10 ML SYRINGE IVF (07:40)
[2025-06-21] MEDS: LACTATED RINGERS 1000 ML 1,000 ML 100 ML IV (07:40)
--- NOTE | 2025-06-21 09:44 | SUR.OPER ---
PATIENT QUESTIONS ANSWERED SATISFACTORILY PREOPERATIVELY.? PATIENT BROUGHT TO OR #3 PER CART.? Patient positioned supine on OR #3 bed.? The perioperative?team supported arms bilaterally on arm boards.? Final approval of positioning by surgeon.? CONTINUOUS IRRIGATION OF THE RIGHT KNEE DURING THE PROCEDURE WITH NACL.
--- NOTE | 2025-06-21 10:18 | P.ANES_ITS ---
Anesthesia Charges Start Date/Time Anesthesia Start Date: 06/21/25 Anesthesia Start Time: 09:34 Stop Date/Time Anesthesia Stop Date: 06/21/25 Anesthesia Stop Time: 10:59 Coding CPT Codes CPT Codes: ANESTH KNEE JOINT SURGERY - 42786 ([id number]) P3 - PATIENT W/SEVERE SYS DISEASE, QK - LEATHER GOODS ASSEMBLER 2-4 CNCRNT ANES PROC, QX - DAMPER FITTER SVC W/ MD MED DIRECTION
--- NOTE | 2025-06-21 10:18 | W.ANESCHARGE ---
Anesthesia Charges Start Date/Time Anesthesia Start Date: 06/21/25 Anesthesia Start Time: 09:34 Stop Date/Time Anesthesia Stop Date: 06/21/25 Anesthesia Stop Time: 10:59 Coding CPT Codes CPT Codes: ANESTH KNEE JOINT SURGERY - 45347 ([id number]) P3 - PATIENT W/SEVERE SYS DISEASE, QK - CASHIER HOST/HOSTESS 2-4 CNCRNT ANES PROC, QX - PROCESS CONTROL BOARD OPERATOR SVC W/ MD MED DIRECTION
[2025-06-21] MEDS: BUPIVACAINE 0.25% 30 ML INJECTION (10:47)
--- NOTE | 2025-06-21 10:47 | P.ORPRC_ITS ---
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 Operative intervention was recommended. The risks, benefits and expected outcomes were discussed in detail. These included but were not limited to: Infection, bleeding, injury to blood vessel or nerve, venous thromboembolism. All questions were answered to their satisfaction. PROCEDURE: Spinal anesthesia was administered. The patient was placed supine on the operating room table. The left lower extremity was prepped and draped in the usual sterile fashion. The limb was exsanguinated with the Martín bandage. The pneumatic tourniquet was inflated to 250 mmHg. A standard anterolateral portal was established. The arthroscope was introduced. The working portal was established anteromedially. Diagnostic arthroscopy was performed with findings as follows: The patellar component is intact with circumferential scarring surrounding it. The femoral component is normal, the tibial polyethylene is normal. The scarring posterior to the patellar tendon was debrided with the radiofrequency probe and shaver. A superolateral portal was placed. Then we aggressively debrided around the patellar component and posterior to the quads tendon with the shaver and radiofrequency probe. Arthroscopic instruments were removed, the portal sites were closed with a 3-0 nylon. Portals were injected with 0.25% Marcaine without epinephrine. A dry dressing was applied, the tourniquet was released. Sponge and needle counts were correct x 2. The patient tolerated the procedure well. There were no apparent complications. They were carefully transferred to the hospital bed and taken to the postanesthesia care unit in satisfactory condition. PLAN: The patient will be discharged to home. They may weightbear as tolerates. Range of motion will be unrestricted. They will follow up in the office in 2 weeks for a wound check and suture removal.
--- NOTE | 2025-06-21 11:12 | P.ANES_ITS ---
Anesthesia Charges Start Date/Time Anesthesia Start Date: 06/21/25 Anesthesia Start Time: 09:34 Stop Date/Time Anesthesia Stop Date: 06/21/25 Anesthesia Stop Time: 10:59 Coding CPT Codes CPT Codes: ANESTH KNEE JOINT SURGERY - 76919 ([id number]) P3 - PATIENT W/SEVERE SYS DISEASE, QK - BIOLOGY ADJUNCT INSTRUCTOR 2-4 CNCRNT ANES PROC, QX - ENTRY LEVEL PROJECT COORDINATOR SVC W/ MD MED DIRECTION
--- NOTE | 2025-06-21 11:12 | W.ANESCHARGE ---
Anesthesia Charges Start Date/Time Anesthesia Start Date: 06/21/25 Anesthesia Start Time: 09:34 Stop Date/Time Anesthesia Stop Date: 06/21/25 Anesthesia Stop Time: 10:59 Coding CPT Codes CPT Codes: ANESTH KNEE JOINT SURGERY - 35596 ([id number]) P3 - PATIENT W/SEVERE SYS DISEASE, QK - CREW CLERK 2-4 CNCRNT ANES PROC, QX - ORACLE BPM DEVELOPER SVC W/ MD MED DIRECTION
== END 2025-06-21 12:30 | disposition home or self-care (01) ==
PROVIDERS: PCP Internal Medicine; Visit Provider Orthopaedic Surgery
PROC: (CPT 29870; principal; 2025-06-21 09:15)
DX: M25.862 Other specified joint disorders, left knee (principal); Z96.652 Presence of left artificial knee joint
CPT/HCPCS: 29877; 01400; J0665; J0690; J1100; J2250; J2405; J2704; J3010; J7120

== ENCOUNTER 2025-07-10 11:04 | Outpatient (CLI) | payer MEDICARE, BC, SELFPAY ==
[2025-07-10 11:31] VITALS: BP 135/70; PULSE 76; RESP 16; O2SAT 98
[2025-07-10 12:28] VITALS: BP 136/85; PULSE 75; RESP 16; O2SAT 99
--- NOTE | 2025-07-10 12:33 | PM.PROC ---
Procedure Note Time Seen by Provider: 11:45 Date Seen: 07/10/25 Provider Contact Time: 12:30 Date of procedure: 07/10/25 Will [facility] bill your pro fee for this procedure?: Yes Procedure: CRYONEUROLYSIS TREATMENT REPORT REFERRING PROVIDER: Anthony Colon TREATMENT PROVIDER: Andrew Tapia PREOPERATIVE DIAGNOSIS: Right knee osteoarthritis POSTOPERATIVE DIAGNOSIS: Right knee osteoarthritis? PROCEDURE: Cryoneurolysis of Multiple Sensory Nerves of the Knee ANESTHESIA: Local INDICATIONS: The patient is a very pleasant 65-year-old male patient with primary osteoarthritis involving the right knee who presents today for cryoneurolysis of multiple sensory nerves to the knee for severe knee pain.?Patient medical history was reviewed. The risks, benefits, treatment alternatives, and complications were discussed with the patient, including but not limited to bleeding, infection, nerve or tissue damage.?Informed consent was obtained. ? PRE-TREATMENT MOTOR ASSESSMENT/PAIN SCORE: Patient was able to demonstrate intact gross motor function with plantarflexion, dorsiflexion, adduction, abduction, hip flexion, and extension of the lower extremity.?Pre-treatment pain score of 7 out of 10 in the right knee. DESCRIPTION OF PROCEDURE: After obtaining informed consent, the patient was brought back to the treatment room and positioned supine on the table.?The right lower extremity was prepped with Chlorhexadine.?We began the procedure by performing our procedural pause.?Once this was completed and verified to be accurate, I began the procedure by identifying the nerves with the use of bedside ultrasound.?After the nerves were identified, the skin was marked and, using 1% lidocaine plain, the area of the nerves were anesthetized. ? After the anesthetic was administered, the Smart Tip 2190 cryoneurolysis needle was inserted into the treatment sites using ultrasound guidance.?Treatment was then initiated on the right lower extremity with the following nerves treated: Superior, superior medial, superior lateral, inferior medial genicular nerves and the infrapatellar branch of the saphenous nerve. At the termination of the treatment, the cryoneurolysis needle was removed with the patient's skin cleansed and Band-Aids an Greg bandage applied. Patient tolerated the procedure without any incident or concern.? Patient was then instructed to stand, mobilize the joint, and was examined to ensure gross motor skills were intact. COMPLICATIONS: None POST-TREATMENT PAIN SCORE: 0 out of 10. Right knee DISPOSITION: Discharge instructions were given to the patient with education on the post-procedure expectations. Patient was instructed to call the Ortho clinic with any post-procedure concerns or questions.
== END 2025-07-10 12:32 | disposition home or self-care (01) ==
LOC: OP CLINIC 11:06
PROVIDERS: PCP Internal Medicine; Visit Provider Nurse Anesthetist, Certified Registered
DX: M17.11 Unilateral primary osteoarthritis, right knee (principal)
CPT/HCPCS: 64640; 76942; C9809

== ENCOUNTER 2025-07-26 09:22 | Day surgery (SDC) | payer MEDICARE, BC, SELFPAY ==
[2025-07-26] VITALS (34 sets, daily range): BP systolic 109–181; BP diastolic 50–89; PULSE 60–96; RESP 16–22; TEMP 36.1–36.8; O2SAT 92–99; BMI 44.4
[2025-07-26] MEDS: LACTATED RINGERS 1000 ML 1,000 ML 100 ML IV ×2 (09:35→13:25)
[2025-07-26] MEDS: SODIUM CHLORIDE 0.9 % (FLUSH) 10 ML SYRINGE IVF (10:26)
[2025-07-26] MEDS: CELECOXIB 200 MG CAPSULE PO ×2 (10:40→20:20)
[2025-07-26] MEDS: OXYCODONE (CR) 10 MG TAB.ER.12H PO (10:40)
[2025-07-26] MEDS: MIDAZOLAM HCL 1 MG/ML inj IVP (10:41)
[2025-07-26] MEDS: ACETAMINOPHEN 500 MG TABLET 1000 MG PO ×2 (10:41→17:24)
--- NOTE | 2025-07-26 10:45 | SUR.PREOP ---
TIME?OUT:?1039 PT/RN/MDA?VERIFICATION?OF?SURGICAL?SITE,?PROCEDURE,?AND?CONSENT OBTAINED?PRIOR?TO?INVASIVE?PROCEDURE.
[2025-07-26] MEDS: TRANEXAMIC ACID 100 MG/ML INJ 1000 MG IV (11:20)
--- NOTE | 2025-07-26 12:44 | P.NB_ITS ---
Nerve Block Nerve Block Time Seen by Provider: 10:40 Date Seen: 07/26/25 Type of block requested by surgeon for post-operative analgesia: adductor canal Side: right Time out performed: Yes Verification of patient name: Yes Verification of date of : Yes Site marking: site marked Name of person performing procedure: Willie Continuous monitoring Was continuous monitoring of O2 sat, B/P, equipment monitor phototypesetting, recorded every 15 minutes?: Yes Procedure Checklist: sterile prep, needles and gloves Ultrasound guided. Images saved: Yes Medications given in 5ml increments after negative aspiration: Marcaine %: 0.25 mL: 15 Needle gauge: 20 Precedex (mcg): 25 Patient tolerated procedure well: Yes Block Charges Block Charge (with Pro Fee): Femoral Nerve Use of Ultrasound Machine for Block: Yes- US Guidance/pain block
--- NOTE | 2025-07-26 12:44 | P.NB_ITS ---
Nerve Block Nerve Block Time Seen by Provider: 10:40 Date Seen: 07/26/25 Type of block requested by surgeon for post-operative analgesia: geniculars Side: right Time out performed: Yes Verification of patient name: Yes Verification of date of : Yes Site marking: site marked Name of person performing procedure: Willie Continuous monitoring Was continuous monitoring of O2 sat, B/P, mechanical design drafter, recorded every 15 minutes?: Yes Procedure Checklist: sterile prep, needles and gloves Ultrasound guided. Images saved: Yes Medications given in 5ml increments after negative aspiration: Marcaine %: 0.25 mL: 9 Needle gauge: 25 Patient tolerated procedure well: Yes Block Charges Block Charge (with Pro Fee): Genicular Nerve Block
--- NOTE | 2025-07-26 13:04 | PM.ORPRC ---
Procedure Note Date of procedure: 07/26/25 Procedure: PREOPERATIVE DIAGNOSIS: Right knee osteoarthritis POSTOPERATIVE DIAGNOSIS: Right knee osteoarthritis NAME OF OPERATION: Right total knee arthroplasty SURGEON: Chu Colon MD [employer] INSTRUCTOR: BRENDA Gee ANESTHESIA: Spinal ESTIMATED BLOOD LOSS: 0 mL COMPLICATIONS: None SPECIMENS: None DRAINS: None PREOPERATIVE ANTIBIOTICS: Ancef 3 g, antibiotic impregnated cement IMPLANTS: 1. J&J Attune revision CRS # 7 posterior stabilized femur, 14 mm x 50 mm cemented stem 2. Revision CRS # 8 fixed-bearing tibia, 14 mm x 50 mm cemented stem 3. # 7 posterior stabilized, 5 mm fixed-bearing polyethylene 4. 38 patella INDICATIONS: The patient is a 65-year-old with a longstanding history of severe, unrelenting right knee pain secondary to end-stage (grade IV) right knee osteoarthritis. Despite appropriate nonoperative management, including activity modification, anti-inflammatories, [id number] pain medication, bracing, physical therapy, and injections they continue to have pain and disability. Operative intervention was offered. The risks, benefits and expected outcomes were discussed in detail. These included but were not limited to: Infection, bleeding, injury to blood vessel or nerve, venous thromboembolism. All questions were answered to their satisfaction. Use of an assistant professor of surgery was necessary throughout the case for patient positioning and safety, soft tissue retraction, and closure. A modifier 22 should be added to this case. The patient weighs 140 kg with a BMI 44. This made the exposure difficult. In order to reduce the risk of aseptic loosening, we used stemmed components on both sides of the joint. All these factors added cost and time to complete the case. PROCEDURE: Spinal anesthesia was administered. The patient was placed supine on the operating table. The assistant professor of surgery made sure the patient was positioned appropriately. The lower extremity was prepped and draped in the usual sterile fashion. The limb was exsanguinated with the Martín bandage. The pneumatic tourniquet was inflated to 225mmHg. A standard anterior incision was made with the knee in flexion. Subcutaneous dissection was sharply taken through fascial layer #1. Full-thickness medial and lateral flaps were elevated. The assistant professor of surgery retracted the soft tissues and protected them throughout the case. A standard subvastus approach was made. The patella was subluxed. The infrapatellar fat pad was debrided. The menisci and cruciate ligaments were sharply d?brided. Marginal osteophytes were d?brided with the rongeur. The drill was used to penetrate the femoral canal. The intramedullary femoral guide was placed for a 5-degree valgus cut, removing 10 mm off the distal femur. The saw was used to make the cut. Whitesides line and the trans epicondylar axis were marked. The femoral sizing guide was pinned onto the distal femur. Three degrees of external rotation nicely parallels the transepicondylar axis. Pins were placed for posterior referencing. The four-in-one cutting guide was pinned onto the distal femur. The anterior, posterior, and chamfer cuts were made. The assistant professor of surgery protected the collateral ligaments. The revision trial was placed. The box cuts were made. The drill was used x2. The stemmed, boxed trial was placed and was an excellent fit. Attention was then turned to the proximal tibia. The intramedullary tibial guide was placed for a neutral varus/valgus cut with 3 degrees of posterior slope, removing 2 mm based off the medial tibial surface. The assistant professor of surgery protected the collateral ligaments and the neurovascular bundle. The saw was used to make the cut. Trial components were placed. The knee was nicely balanced in both flexion and extension. The trial components were removed. The tray was placed in appropriate rotation, parallel to our tibial cutting pins. It was pinned by the assistant professor of surgery and the drill x2 was used. The stemmed tibial trial was placed. The punch was used. The tray was removed. The punch was used again. Attention was then turned to the patella. [place] patellar thickness was 26 mm. The lobster claw resection guide was used with the 9.5 mm hellen. The saw was used to make the cut. Drill holes were made by the assistant professor of surgery. The trial was placed and was an excellent fit. Cancellous surfaces were irrigated with pulse lavage and thoroughly dried by the assistant professor of surgery. We cemented the tibial component, then the femoral component. We impacted the 5 mm polyethylene onto the tibial tray. The knee was brought into full extension. We then cemented the patellar component. Excessive cement was removed. The cement was allowed to harden. The knee was taken through a range of motion and was found to be nicely balanced in both flexion and extension. The patella tracks centrally. The assistant professor of surgery did a three minute dilute Betadine solution soak. The assistant professor of surgery irrigated the wound with 3 liters of normal saline via pulse lavage. The assistant professor of surgery reapproximated the extensor mechanism with #1 Vicryl in an interrupted jqtzou-fj-oxdid fashion. The assistant professor of surgery then ran the extensor mechanism with a #1 PDO Stratafix. The assistant professor of surgery closed the subcutaneous tissues with a 3-0 Stratafix and the skin with a running 3-0 Stratafix in a subcuticular fashion. The assistant professor of surgery placed a dry dressing. Sponge and needle counts were correct x2. The patient tolerated the procedure well. There were no apparent complications. They were carefully transferred to the hospital bed and taken to the postanesthesia care unit in satisfactory condition. PLAN: The patient will be mobilized with physical therapy. Aspirin will be used for DVT prophylaxis. They will be discharged to home once medically appropriate.
--- NOTE | 2025-07-26 13:06 | CRLHL7_ITS ---
For Patients: As a result of the Cures Act, medical imaging exams and procedure reports are released immediately into your electronic medical record. You may view this report before your referring provider. If you have questions, please contact your health care provider. Indication: Post Op TKA Technique: Two views right knee Findings/Impression: Hardware from a right total knee arthroplasty is in satisfactory position. Bone alignment is normal. No sign of acute fracture. Postop changes are within normal limits. Dictated by Mayito Chambers MD @ 07/26/2025 2:10:06 PM (Electronically Signed)
--- NOTE | 2025-07-26 14:03 | P.ANES_ITS ---
Anesthesia Charges Start Date/Time Anesthesia Start Date: 07/26/25 Anesthesia Start Time: 11:05 Stop Date/Time Anesthesia Stop Date: 07/26/25 Anesthesia Stop Time: 13:41 Coding CPT Codes CPT Codes: ANESTH KNEE ARTHROPLASTY - 75139 ([id number]) P3 - PATIENT W/SEVERE SYS DISEASE, QK - ETYMOLOGY TEACHER 2-4 CNCRNT ANES PROC
--- NOTE | 2025-07-26 14:03 | W.ANESCHARGE ---
Anesthesia Charges Start Date/Time Anesthesia Start Date: 07/26/25 Anesthesia Start Time: 11:05 Stop Date/Time Anesthesia Stop Date: 07/26/25 Anesthesia Stop Time: 13:41 Coding CPT Codes CPT Codes: ANESTH KNEE ARTHROPLASTY - 29073 ([id number]) P3 - PATIENT W/SEVERE SYS DISEASE, QK - SOFTWARE REVERSE ENGINEER 2-4 CNCRNT ANES PROC
--- NOTE | 2025-07-26 14:50 | SUR.PHASEI ---
Patient normally takes up to 6 doses of Vicodin 7.5 mg/325 mg per day for back pain. He is currently awake, talkative, not grimacing or moving about with pain. Talked to Med Surg Charge nurse and will bring patient to Med Surg Unit.
--- NOTE | 2025-07-26 14:51 | SUR.PHASEI ---
Patient meets discharge criteria from PACU.
--- NOTE | 2025-07-26 14:53 | SUR.PHASEI ---
Patient meets discharge criteria from PACU
--- NOTE | 2025-07-26 15:49 | PM.IMCN1 ---
Date of Consult Patient: [facility] Patient Consult date: 07/26/25 Requesting Physician: Orthopedics Primary Care Provider: Sonia Gordon Consult Narrative Reason for consult: Support postoperative cares Narrative: Bebo Jimenez is a 65 year old man undergoes elective right total knee arthroplasty today with Dr. Villanueva. Estimated blood loss 0 mL. Chronic back pain syndrome for which she takes hydrocodone 01/3251 tab p.o. 6 times daily. In addition to pharmacologic therapy he needs to move a lot to keep the pain under control. History of obstructive sleep apnea with CPAP prescribed. Utilizes albuterol meter dose inhaler occasionally for wheezing and shortness of breath. Review of Systems Status of ROS: Reports: 6 or more systems reviewed and unremarkable except as noted in History and below Narrative: Has plans to travel to [facility] in about 8 or 9 days to be with his family as they go deer hunting. Also has plans to travel to the [facility] in about a month to do more deer hunting. Denies cardiopulmonary symptoms including angina, anginal equivalent, syncope, near syncope, dyspnea at rest, paroxysmal nocturnal dyspnea, orthopnea, palpitations, chest fluttering, nausea vomiting. Denies dysuria, urgency, frequency, hematuria. Denies urinary retention. Bowel and bladder function satisfactory. No recent history of blood loss of any sort including gastrointestinal, or any other blood loss. No recent trauma or injury. No recent travel. No recent illnesses. [facility] Medical History (Updated 07/26/25 @ 16:04 by Grant Trevino MD) Hematoma ?T14.8XXA - Other injury of unspecified body region, initial encounter (ICD-10) Osteoarthritis of right knee ?M17.11 - Unilateral primary osteoarthritis, right knee (ICD-10) Patellar clunk syndrome of left knee ?M25.862 - Other specified joint disorders, left knee (ICD-10) Swelling of joint, knee, left ?M25.462 - Effusion, left knee (ICD-10) Lumbar disc herniation ?M51.26 - Other intervertebral disc displacement, lumbar region (ICD-10) Bilateral leg edema ?R60.0 - Localized edema (ICD-10) Decreased hearing of both ears ?H91.93 - Unspecified hearing loss, bilateral (ICD-10) Displacement of intervertebral disc between L4 and L5 ?M51.26 - Other intervertebral disc displacement, lumbar region (ICD-10) Bilateral primary osteoarthritis of knee ?M17.0 - Bilateral primary osteoarthritis of knee (ICD-10) Left elbow tendinitis ?M77.8 - Other enthesopathies, not elsewhere classified (ICD-10) Chronic pain syndrome ?G89.4 - Chronic pain syndrome (ICD-10) Unspecified asthma ?J45.909 - Unspecified asthma, uncomplicated (ICD-10) Moderate recurrent major depression ?F33.1 - Major depressive disorder, recurrent, moderate (ICD-10) Anxiety ?F41.9 - Anxiety disorder, unspecified (ICD-10) Migraine ?G43.909 - Migraine, unspecified, not intractable, without status migrainosus (ICD-10) Other spondylosis with radiculopathy, lumbosacral region ?M47.27 - Other spondylosis with radiculopathy, lumbosacral region (ICD-10) Type 2 diabetes mellitus without complication ?E11.9 - Type 2 diabetes mellitus without complications (ICD-10) Vitamin D deficiency ?E55.9 - Vitamin D deficiency, unspecified (ICD-10) Obesity ?E66.9 - Obesity, unspecified (ICD-10) Branch retinal vein occlusion with macular edema of left eye ?H34.8320 - Tributary (branch) retinal vein occlusion, left eye, with macular edema (ICD-10) Pain medication agreement ?Z02.89 - Encounter for other administrative examinations (ICD-10) Low back pain ?M54.50 - Low back pain, unspecified (ICD-10) Shoulder pain ?M25.519 - Pain in unspecified shoulder (ICD-10) Hypertension ?I10 - Essential (primary) hypertension (ICD-10) Sleep apnea ?G47.30 - Sleep apnea, unspecified (ICD-10) Surgical History (Updated 07/26/25 @ 16:00 by Grant Trevino MD) History of arthroscopy of left knee (06/21/25) ?Z98.890 - Other specified postprocedural states (ICD-10) History of total left knee replacement (12/26/24) ?Z96.652 - Presence of left artificial knee joint (ICD-10) S/P insertion of spinal cord stimulator ?Z96.89 - Presence of other specified functional implants (ICD-10) Status post arthroscopy of left shoulder (12/03/22) ?Z98.890 - Other specified postprocedural states (ICD-10) History of arthroscopy of left shoulder (10/14/95) ?Z98.890 - Other specified postprocedural states (ICD-10) History of arthroscopy of left knee ?Z98.890 - Other specified postprocedural states (ICD-10) History of ankle surgery ?Z98.890 - Other specified postprocedural states (ICD-10) History of ankle surgery (11/20/16) ?Z98.890 - Other specified postprocedural states (ICD-10) S/P medial meniscectomy of right knee (12/14/17) ?Z98.890 - Other specified postprocedural states (ICD-10) Status post arthroscopy of right shoulder (08/17/19) ?Z98.890 - Other specified postprocedural states (ICD-10) History of arthroscopy of left shoulder (12/09/21) ?Z98.890 - Other specified postprocedural states (ICD-10) H/O hernia repair ?Z98.890 - Other specified postprocedural states (ICD-10) ?Z87.19 - Personal history of other diseases of the digestive system (ICD-10) Hx of cholecystectomy ?Z90.49 - Acquired absence of other specified parts of digestive tract (ICD-10) Hx of appendectomy ?Z90.49 - Acquired absence of other specified parts of digestive tract (ICD-10) Social History Narrative: , [place]. Denies tobacco, alcohol or illicit drug use. 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 nicotine pouches What is your current living situation?: I presently have a place to live Problems where you live: no known problems In the past 12 months, utilities in danger of being shut off: no In past 12 months, lack of transportation kept you from medical appts, meetings, work, or getting things needed for daily living: no In the past 12 mos, have been you worried that your food would run out before you had money to buy more?: declined to answer In the past 12 mos, the food you bought just didn't last and you didn't have money to buy more?: declined to answer Highest level of school completed/degree received: some college, no degree Smoking Status: Never smoker Do you use any of these nicotine containing products: None Second hand tobacco smoke exposure: No How often do you have a drink containing alcohol: monthly or less How many standard drinks containing alcohol do you have on a typical day: 1 or 2 How often do you have six or more drinks on one occasion: Never AUDIT-C Alcohol total score: 1 Non-prescribed substance use: denies use Caffeine: Yes How often does anyone, including family, friends and others, physically hurt you: never How often does anyone, including family, friends and others, insult or talk down to you: never How often does anyone, including family, friends and others, threaten you with harm: never How often does anyone, including family, friends and others, scream or curse at you: never service: No Meds Home Medications and Allergies Home Medications ?Medication ?Instructions ?Recorded ?Confirmed ?Type tizanidine 4 mg tablet 4 mg PO Q6H PRN 01/13/23 07/26/25 History albuterol sulfate 90 mcg/actuation 1 - 2 puff inhalation Q4H PRN 09/29/24 07/24/25 History aerosol inhaler hydroxyzine HCl 25 mg tablet 25 mg PO Q6-8H PRN 12/26/24 07/26/25 History semaglutide 1 mg/dose (4 mg/3 mL) 1 mg subcut QWEEK 12/26/24 07/26/25 History subcutaneous pen injector (Ozempic) acetaminophen 500 mg capsule 500 - 1,000 mg (1 - 2 x 500 mg) PO 07/26/25 Rx Q6H PRN pain #100 caps aspirin 81 mg chewable tablet 81 mg PO BID for DVT prophylaxis 07/26/25 Rx (Aspirin Childrens) 30 days #60 tabs oxycodone 5 mg tablet 2.5 - 5 mg (0.5 - 1 x 5 mg) PO 07/26/25 Rx Q4-6H PRN Pain #42 tabs sennosides 8.6 mg tablet (Senna 17.2 mg (2 x 8.6 mg) PO BID PRN 07/26/25 Rx Lax) constipation #100 tabs Allergies Allergy/AdvReac Type Severity Reaction Status Date / Time No Known Drug Allergies Allergy Verified 07/26/25 09:34 Exam Narrative: Exam Narrative: I examine the patient in his hospital room postoperatively. Awake, alert, oriented x4. Friendly, articulate, cooperative. Cranial nerves 3-12 grossly normal. Normal hearing and vision. Dentition in good repair with moist buccal mucosa. No icterus. Conjugate gaze. Lungs are clear to auscultation without wheezing, rhonchi, rales. Heart tones with regular rhythm, normal S1-S2, without murmur, gallop, rub. Abdomen is obese with active bowel sounds, soft, nontender. No rebound or guarding. No lower extremity edema today. Palpable pulses upper and lower extremities. No focal motor neurologic deficits. Const: Vital Signs, click to edit/add: Vital Signs - 24 hr 07/26/25 10:00 07/26/25 10:45 07/26/25 13:36 Temperature 98.0 F 97.7 F Pulse Rate 70 61 96 Respiratory Rate 16 16 Blood Pressure 109/61 120/73 157/89 H Pulse Oximetry 98 97 97 Oxygen Delivery Me thod Room Air Room Air 07/26/25 13:40 07/26/25 13:45 07/26/25 13:50 Temperature Pulse Rate 93 87 71 Respiratory Rate 16 16 16 Blood Pressure 147/70 H 154/80 H 153/78 H Pulse Oximetry 97 93 95 Oxygen Delivery Me thod 07/26/25 13:55 07/26/25 14:00 07/26/25 14:05 Temperature Pulse Rate 88 67 66 Respiratory Rate 16 16 16 Blood Pressure 149/80 H 149/79 H 156/79 H Pulse Oximetry 98 99 97 Oxygen Delivery Me thod Room Air 07/26/25 14:10 07/26/25 14:15 07/26/25 14:20 Temperature 97.0 F L Pulse Rate 66 65 60 Respiratory Rate 16 16 19 Blood Pressure 149/72 H 147/80 H 146/77 H Pulse Oximetry 92 95 97 Oxygen Delivery Me thod Room Air 07/26/25 14:25 07/26/25 14:30 07/26/25 14:35 Temperature Pulse Rate 65 63 65 Respiratory Rate 20 20 22 Blood Pressure 144/76 H 144/70 H 143/72 H Pulse Oximetry 95 95 96 Oxygen Delivery Me thod Room Air 07/26/25 14:40 07/26/25 14:45 07/26/25 14:50 Temperature 97.1 F L Pulse Rate 61 64 66 Respiratory Rate 20 18 16 Blood Pressure 138/71 142/73 H 140/73 H Pulse Oximetry 97 97 95 Oxygen Delivery Me thod Room Air 07/26/25 14:57 Temperature Pulse Rate 65 Respiratory Rate 18 Blood Pressure 141/75 H Pulse Oximetry 96 Oxygen Delivery Me thod Assessment and Plan Assessment and plan (1) Osteoarthritis of right knee: Status: Acute (2) Status post total right knee replacement: Problem comment: - Dr. Colon, orthopedic surgery, [facility], 07/26/2025 Status: Acute (3) History of total left knee replacement: Problem comment: - Left total knee arthroplasty, right knee steroid injection. Dr. Colon, 12/26/24 - routine postop cares - pain control improving, continue oral pain medications with IV Dilaudid for breakthrough, continue use of implanted back stimulator - VTE prophylaxis with twice a day aspirin Status: Acute (4) Hypertension: Problem comment: - patient does not take any antihypertensives, monitor blood pressure Status: Chronic (5) Sleep apnea: Problem comment: - encourage use of CPAP at night Status: Chronic (6) Pain medication agreement: Problem comment: Prescriber: Dr. Alex Browning, [facility] Bebo Pillai MD Ok to fill at same amount/dose/frequency in my absence. Controlled substance agreement: 10/10/12 Last UDS on 06/15/2022 [employer] 12/11/2024 Status: Acute (7) Chronic pain syndrome: Problem comment: - orthopedic surgery managing postop pain - consider resuming his usual contract pain medications upon discharge from the hospital, stopping the currently scheduled acetaminophen per Orthopedic surgery, and utilizing the oxycodone and celecoxib per Orthopedic surgery Status: Acute Plan 1. Reviewed impression, plans, recommendations with patient 2. Answered his questions to satisfaction 3. Patient agreeable with above stated plans and recommendations Total Time Spent Total Time Spent: 40 minutes
[2025-07-26] MEDS: CEFAZOLIN 3 GM in 0.9 % SODIUM CHLORIDE Mini-bag 100 ML IVPB (20:20)
[2025-07-26] MEDS: ASPIRIN 81 MG TABLET EC PO (20:21)
[2025-07-26] MEDS: SENNOSIDES 1 TAB TABLET 2 TAB PO (20:21)
[2025-07-26] MEDS: TIZANIDINE HCL 4 MG TABLET PO (22:22)
[2025-07-27 00:35] VITALS: BP 125/61; PULSE 79; RESP 18; TEMP 36.4; O2SAT 93
[2025-07-27] MEDS: CEFAZOLIN 3 GM in 0.9 % SODIUM CHLORIDE Mini-bag 100 ML IVPB (03:51)
[2025-07-27] MEDS: ACETAMINOPHEN 500 MG TABLET 1000 MG PO (04:04)
[2025-07-27 04:10] VITALS: BP 126/62; PULSE 68; RESP 16; TEMP 36.4; O2SAT 97
[2025-07-27 07:00] VITALS: PULSE 77; RESP 16; O2SAT 99
--- NOTE | 2025-07-27 07:01 | PC.NURSE ---
End of shift:?Pt pleasant,?alert?and oriented.?Pt?refused staff?assistance?with ambulation. Staff educated the patient?on risks and benefits of?assistance, encouraged compliance, pt?refused.?Ice pack to op site.?Pain rated 6-7/10, prn oxy given. Pt educated on benefits of oral pain medications over IV, pt obliged.?Pt in bed, appears to be resting call?light?within reach.?
[2025-07-27 08:07] VITALS: BP 136/68; PULSE 77; RESP 16; TEMP 36.9; O2SAT 99
--- NOTE | 2025-07-27 08:45 | PM.ORPN ---
Subjective Subjective Time Seen by Provider: 07:30 Date Seen: 07/27/25 Principal diagnosis: Status post right knee replacement Interval history: Sang has some discomfort in the knee, however much improved from his left knee replacement. He has been ambulating throughout the halls. He is looking forward to discharging this morning. He is happy that he got about 4 hours of sleep last night. Ortho Exam Narrative Exam Narrative: Alert and oriented x3. Patient is in no acute distress. Converses without labored breathing. Hearing is grossly intact. Ambulates with a walker. Examination of the right knee shows the dressing is intact. No erythema or warmth or sign of infection. Anterior hematoma is present. He is easily able to straight leg raise. CMS intact right lower extremity. Calves are soft and nontender. Const Vital Signs, click to edit/add: Vital Signs - 24 hr 07/26/25 10:00 07/26/25 10:45 07/26/25 13:36 Temperature 98.0 F 97.7 F Pulse Rate 70 61 96 Pulse Rate [Right Pulse Oximeter] Respiratory Rate 16 16 Blood Pressure 109/61 120/73 157/89 H Blood Pressure [Left Arm] Pulse Oximetry 98 97 97 Oxygen Delivery Method Room Air Room Air 07/26/25 13:40 07/26/25 13:45 07/26/25 13:50 Temperature Pulse Rate 93 87 71 Pulse Rate [Right Pulse Oximeter] Respiratory Rate 16 16 16 Blood Pressure 147/70 H 154/80 H 153/78 H Blood Pressure [Left Arm] Pulse Oximetry 97 93 95 Oxygen Delivery Method 07/26/25 13:55 07/26/25 14:00 07/26/25 14:05 Temperature Pulse Rate 88 67 66 Pulse Rate [Right Pulse Oximeter] Respiratory Rate 16 16 16 Blood Pressure 149/80 H 149/79 H 156/79 H Blood Pressure [Left Arm] Pulse Oximetry 98 99 97 Oxygen Delivery Method Room Air 07/26/25 14:10 07/26/25 14:15 07/26/25 14:20 Temperature 97.0 F L Pulse Rate 66 65 60 Pulse Rate [Right Pulse Oximeter] Respiratory Rate 16 16 19 Blood Pressure 149/72 H 147/80 H 146/77 H Blood Pressure [Left Arm] Pulse Oximetry 92 95 97 Oxygen Delivery Method Room Air 07/26/25 14:25 07/26/25 14:30 07/26/25 14:35 Temperature Pulse Rate 65 63 65 Pulse Rate [Right Pulse Oximeter] Respiratory Rate 20 20 22 Blood Pressure 144/76 H 144/70 H 143/72 H Blood Pressure [Left Arm] Pulse Oximetry 95 95 96 Oxygen Delivery Method Room Air 07/26/25 14:40 07/26/25 14:45 07/26/25 14:50 Temperature 97.1 F L Pulse Rate 61 64 66 Pulse Rate [Right Pulse Oximeter] Respiratory Rate 20 18 16 Blood Pressure 138/71 142/73 H 140/73 H Blood Pressure [Left Arm] Pulse Oximetry 97 97 95 Oxygen Delivery Method Room Air 07/26/25 14:57 07/26/25 15:12 07/26/25 15:27 Temperature 98.0 F 98.0 F Pulse Rate 65 Pulse Rate [Right Pulse Oximeter] 67 67 Respiratory Rate 18 18 18 Blood Pressure 141/75 H Blood Pressure [Left Arm] 156/82 H 156/82 H Pulse Oximetry 96 98 98 Oxygen Delivery Method Room Air Room Air 07/26/25 15:42 07/26/25 15:57 07/26/25 16:27 Temperature 98.0 F 97.5 F L 97.5 F L Pulse Rate Pulse Rate [Right Pulse Oximeter] 67 71 68 Respiratory Rate 18 16 16 Blood Pressure Blood Pressure [Left Arm] 156/82 H 154/77 H 181/83 H Pulse Oximetry 98 98 98 Oxygen Delivery Method Room Air Room Air Room Air 07/26/25 16:57 07/26/25 17:09 07/26/25 17:24 Temperature 97.5 F L 97.5 F L 97.5 F L Pulse Rate 65 65 Pulse Rate [Right Pulse Oximeter] 68 Respiratory Rate 16 16 16 Blood Pressure 141/75 H 156/87 H Blood Pressure [Left Arm] 145/75 H Pulse Oximetry 98 98 98 Oxygen Delivery Method Room Air Room Air Room Air 07/26/25 17:39 07/26/25 17:54 07/26/25 18:24 Temperature 97.8 F 97.8 F 97.8 F Pulse Rate 81 81 81 Pulse Rate [Right Pulse Oximeter] Respiratory Rate 16 16 16 Blood Pressure 156/87 H 141/80 H 141/80 H Blood Pressure [Left Arm] Pulse Oximetry 98 98 98 Oxygen Delivery Method Room Air Room Air Room Air 07/26/25 19:30 07/26/25 20:30 07/26/25 21:30 Temperature 98.1 F 98 F 98.2 F Pulse Rate 74 Pulse Rate [Right Pulse Oximeter] 80 75 Respiratory Rate 18 18 18 Blood Pressure 157/71 H Blood Pressure [Left Arm] 150/80 H 142/50 H Pulse Oximetry 98 95 95 Oxygen Delivery Method Room Air Room Air Room Air 07/26/25 23:00 07/26/25 23:00 07/27/25 00:35 Temperature 97.6 F Pulse Rate Pulse Rate [Right Pulse Oximeter] 79 Respiratory Rate 16 18 Blood Pressure Blood Pressure [Left Arm] 125/61 Pulse Oximetry 93 93 Oxygen Delivery Method Room Air Room Air 07/27/25 04:10 07/27/25 07:00 07/27/25 07:00 Temperature 97.6 F Pulse Rate Pulse Rate [Right Pulse Oximeter] 68 77 Respiratory Rate 16 16 16 Blood Pressure Blood Pressure [Left Arm] 126/62 Pulse Oximetry 97 99 Oxygen Delivery Method Room Air Room Air 07/27/25 08:07 Temperature 98.4 F Pulse Rate Pulse Rate [Right Pulse Oximeter] 77 Respiratory Rate 16 Blood Pressure Blood Pressure [Left Arm] 136/68 Pulse Oximetry 99 Oxygen Delivery Method Room Air Assessment and Plan Assessment and plan (1) Status post total right knee replacement: Problem details: - Dr. Colon, orthopedic surgery, [facility], 07/26/2025 Status: Acute Assessment and Plan: Plan for discharge is today to home if they meet discharge criteria. DVT prophylaxis includes aspirin 81 mg twice daily x1 month, Compression stockings as needed for swelling. Frequent ambulation, every hour throughout the day. Remove dressing in 1 week. Observe wound and phone Orthopedics with any questions or concerns Return to clinic in 1-2 weeks for a wound check as scheduled Return to clinic in 6 weeks with surgeon Minimize narcotic use. Wean off and discontinue soon as possible. Activities as tolerated. No strenuous activity. Outpatient physical therapy as scheduled. Ice and elevate the operative extremity. No restriction on ice.
[2025-07-27] MEDS: SENNOSIDES 1 TAB TABLET 2 TAB PO (08:53)
[2025-07-27] MEDS: ASPIRIN 81 MG TABLET EC PO (08:53)
[2025-07-27] MEDS: CELECOXIB 200 MG CAPSULE PO (08:54)
--- NOTE | 2025-07-27 11:36 | PC.NURSE ---
Discharge: Patient pleasant. VSS, afebrile. SpO2 maintained above 90% on RA. Pt reports pain on his right knee this shift, managed with PRN medication, see NOV. Dressing on right knee C/D/I. Pt refused assistance from nursing with ambulating this shift, educated on importance of asking for assistance. Tolerating regular diet, denies nausea. IV removed with tip intact. Discharge instructions provided, all questions answered. D/C to home via wheelchair.
== END 2025-07-27 10:15 | disposition home or self-care (01) ==
LOC: OR 09:23 → MEDSURG 09:24
PROVIDERS: PCP Internal Medicine; Visit Provider Orthopaedic Surgery
PROC: (CPT 27447; principal; 2025-07-26 10:45)
DX: M17.11 Unilateral primary osteoarthritis, right knee (principal); G89.18 Other acute postprocedural pain; E11.9 Type 2 diabetes mellitus without complications; G47.33 Obstructive sleep apnea (adult) (pediatric); E66.9 Obesity, unspecified; Z68.41 Body mass index [BMI] 40.0-44.9, adult; G89.29 Other chronic pain; M54.9 Dorsalgia, unspecified; Z99.89 Dependence on other enabling machines and devices; F41.9 Anxiety disorder, unspecified; J45.909 Unspecified asthma, uncomplicated; I10 Essential (primary) hypertension; Z96.652 Presence of left artificial knee joint
CPT/HCPCS: 27447; 01402; 64447; 64454; 73560; 76942; 82962; 97110; 97116; 97161; 97165; 97530; A9270; C1776; J0330; J0665; J0690; J1100; J1171; J2250; J2371; J2405; J2704; J2710; J3010; J3475; J3490; J7120